=== PATIENT | female | born 1935 | race Caucasian/White ===

== ENCOUNTER 2020-06-01 10:55 | Outpatient (REF) | payer MEDICARE, OTHER, SELFPAY ==
--- NOTE | 2020-06-01 11:04 | XR_ITS ---
EXAMINATION: XR SHOULDER, RIGHT CLINICAL INFORMATION: Shoulder pain. COMPARISON: None. TECHNIQUE: 3 views of the right shoulder. FINDINGS: Ylhcyobt-ef-dyhjdd glenohumeral joint arthritis with large inferomedial humeral head osteophyte, joint space narrowing, prominent glenoid cyst. Fjmm-db-fxaydipu AC joint arthritis. No fracture or dislocation. No abnormal soft tissue calcification. XR/XR shoulder RT min 2V IMPRESSION: Pypdokzq-vm-jxkmdr glenohumeral joint arthritis. Ifsh-hd-mluryret AC joint arthritis.
== END 2020-06-01 10:56 | disposition home or self-care (01) ==
LOC: HO.HMGCX 10:55
PROVIDERS: PCP Internal Medicine; Visit Provider Internal Medicine
DX: M79.603 Pain in arm, unspecified (principal)
CPT/HCPCS: 73030

== ENCOUNTER 2021-10-01 07:04 | Outpatient (REF) | payer MEDICARE, OTHER, SELFPAY ==
[2021-10-01 11:22] LABS: Hematocrit 37.3 % (37.0-47.0); Hemoglobin 12.3 g/dl (12.0-16.0); Mean Platelet Volume 10.7 fL (9.4-12.3); Platelet Count 179 X10*3/uL (160-400); Red Blood Count 3.97 X10*6/uL (4.20-5.50); Red Cell Distribution Width 12.9 % (11.0-16.0); White Blood Count 5.8 X10*3/uL (4.8-10.8)
[2021-10-01 11:45] LABS: Alanine Aminotransferase 12 U/L (0-31); Albumin Level 4.1 g/dL (3.5-5.0); Alkaline Phosphatase 95 U/L (39-117); Anion Gap 12 (12-20); Aspartate Amino Transferase 21 U/L (5-31); Bilirubin Total 1.4 mg/dL (0.0-1.0); Blood Urea Nitrogen 22 mg/dL (9-16); Calcium 9.4 mg/dL (8.4-10.2); Carbon Dioxide 29 mmol/L (22-29); Chloride 104 mmol/L (96-108); Cholesterol 167 mg/dL; Estimated Glomerular Filt Rate 59; Glucose Fasting 96 mg/dL (60-99); HDL Cholesterol 47 mg/dL; LDL Cholesterol Calculated 99 mg/dl; Potassium 4.1 mmol/L (3.3-5.1); Sodium 141 mmol/L (135-145); Total Protein 7.1 g/dL (6.5-8.0); Triglycerides 108 mg/dL
[2021-10-01 11:50] LABS: TSH reflex Free T4 2.55 uIU/mL (0.32-4.0)
== END 2021-10-01 07:05 | disposition home or self-care (01) ==
LOC: HO.HMGCLDS 07:04
PROVIDERS: Visit Provider Internal Medicine
DX: E78.5 Hyperlipidemia, unspecified (principal); I10 Essential (primary) hypertension
CPT/HCPCS: 36415; 80053; 80061; 84443; 85027

== ENCOUNTER 2022-03-30 10:50 | Outpatient (REF) | payer MEDICARE, OTHER, SELFPAY ==
[2022-03-30 14:15] LABS: MANUAL DIFF FLAG NO
[2022-03-30 14:18] LABS: Basophils Percent Auto 0.4 % (0-2); Eosinophils Absolute Auto 0.1 X10*3/uL (0.0-0.4); Eosinophils Percent Auto 2.7 % (0-4); Hematocrit 34.5 % (37.0-47.0); Hemoglobin 11.7 g/dl (12.0-16.0); Imm Gran Abs Auto 0.01 X10*3/uL (0.00-0.03); Imm Gran Pct Auto 0.2 % (0.0-0.4); Lymphocytes Absolute Auto 1.2 X10*3/uL (1.2-4.9); Lymphocytes Percent Auto 25.8 % (20-40); Mean Corpuscular HGB Conc 33.9 g/dl (31.0-35.0); Mean Corpuscular Hemoglobin 31.4 pg (27.0-33.0); Mean Corpuscular Volume 92.5 fL (80.0-98.0); Mean Platelet Volume 10.7 fL (9.4-12.3); Monocytes Absolute Auto 0.5 X10*3/uL (0.1-1.2); Neutrophils Absolute Auto 2.7 x10*3/uL (2.0-8.3); Neutrophils Percent Auto 58.9 % (45-73); Platelet Count 174 X10*3/uL (160-400); Red Blood Count 3.73 X10*6/uL (4.20-5.50); Red Cell Distribution Width 13.2 % (11.0-16.0); White Blood Count 4.5 X10*3/uL (4.8-10.8)
[2022-03-30 14:48] LABS: Alanine Aminotransferase 13 U/L (0-31); Albumin Level 4.2 g/dL (3.5-5.0); Alkaline Phosphatase 95 U/L (39-117); Anion Gap 15 (12-20); Aspartate Amino Transferase 23 U/L (5-31); Blood Urea Nitrogen 18 mg/dL (9-16); Calcium 9.3 mg/dL (8.4-10.2); Carbon Dioxide 28 mmol/L (22-29); Chloride 104 mmol/L (96-108); Estimated Glomerular Filt Rate 55; Glucose Random 88 mg/dL (60-115); Iron 102 mcg/dL (30-160); Percent Iron Saturation 35 % (15-50); Potassium 3.9 mmol/L (3.3-5.1); Sodium 143 mmol/L (135-145); Total Iron Binding Capacity 292 mcg/dL (228-428); Unsaturated Iron Binding 190 ug/dL
[2022-03-30 15:11] LABS: TSH reflex Free T4 1.21 uIU/mL (0.32-4.0)
== END 2022-03-30 10:51 | disposition home or self-care (01) ==
LOC: HO.HMGCLDS 10:50
PROVIDERS: PCP Internal Medicine; Visit Provider Internal Medicine
DX: I10 Essential (primary) hypertension (principal); R53.83 Other fatigue; E55.9 Vitamin D deficiency, unspecified
CPT/HCPCS: 36415; 80053; 82306; 83540; 84443; 85025

== ENCOUNTER 2023-01-06 10:14 | Outpatient (AMB) | payer MEDICARE, OTHER, SELFPAY ==
[2023-01-06 10:43] VITALS: BP 142/66; PULSE 83; O2SAT 98; BMI 25.1
--- NOTE | 2023-01-06 10:43 | A.OFFPC_ITS ---
Vital Signs 01/06/23 10:43 Height 5 ft 1 in Weight 133 lb BMI 25.1 BP 142/66 H Blood Pressure Location Lt brachial Position Sitting Pulse 83 Pulse Source Pulse Oximeter Pulse Oximetry (%) 98 Oxygen Delivery Method Room Air Intake Visit Reasons: fatigue/not feeling well Intake Note: Pt is here today for a follow up visit. Pt states that she has some concerns she would like to dicuss today. Allergies omeprazole [Prilosec] Allergy (Unknown, Verified 01/06/23 10:46) hives Medication List - Last Reconciled 01/06/23 by Cady Orr MD aspirin (Adult Aspirin Regimen) 81 mg PO DAILY escitalopram oxalate 10 mg PO DAILY flu vac 2020 [id number](PF) 60 mcg (15 mcg x 4)/0.5 mL 0.5 mL IM DIRECTED lisinopril 5 mg PO DAILY multivitamin 1 tab PO DAILY pantoprazole 40 mg PO DAILY simvastatin 40 mg PO BEDTIME Tobacco use date assessed: 01/06/23 Fall risk assessment: No Falls in past year Last assessed Fall Risk: 01/06/23 Dental Screening Dental Screen Date: 01/06/23 Did you have a dental visit in the last 12 months?: Yes Did you have a dental problem in the last 6 months where you did not have access to dental care?: No Was dental information given to patient?: Patient has dentist HPI fatigue/not feeling well HPI Details Pt presents for HTN and hyperlipid, stable on meds. Pt c/o feeling more anxious recently. She has been less socially involved since [facility]. Patient lives with her son but he is very busy working. Patient denies insomnia or depression [facility] Medical History Anxiety disorder Arm pain Dyslipidemia Essential hypertension GERD (gastroesophageal reflux disease) Hx of fall Shoulder pain, right Surgical History No pertinent past surgical history Family History (Updated 01/06/23 @ 10:50 by AMIRA Burk) Father Pancreatic cancer Mother Hypertension Social History Housing: House Alcohol intake: current Alcohol intake frequency: a few times a month Patient Tobacco Use Status: Never used Tobacco e-Cigarette/Vaping Use: Never Used Current occupational status: retired Cognitive needs: No Hearing needs: Yes Vision needs: Yes Questionnaire Thrive Questionnaire Date Thrive assessed: 09/28/21 AUDIT C Alcohol Use Questionnaire (AUDIT-C) 1. How often do you have a drink containing alcohol?: Never 3. How often do you have six or more drinks on one occasion?: Never Total Score: 0 JULI-7 AMB Questionnaire JULI-7 Date JULI - 7 assessed: 09/28/21 Source: Developed by Drs. Howard Barnard, Grace Becker, Jimmie Schuster and colleagues, with an educational enoc from [employer] Review of Systems Const All systems reviewed & are unremarkable except as noted in HPI and below Reports no additional complaints Eyes Reports no additional complaints ENT Reports no additional complaints Card Reports no additional complaints Resp Reports no additional complaints GI Reports no additional complaints Physical exam (Primary Care) Vital Signs: Last Vital Signs Pulse 83 01/06/23 10:43 BP 142/66 H 01/06/23 10:43 Pulse Ox 98 01/06/23 10:43 Oxygen Delivery Method Room Air 01/06/23 10:43 BMI result Body Mass Index 25.1 Tobacco/Smoking Status: Tobacco use Status Tobacco use date assessed 01/06/23 01/06/23 10:50 Patient Tobacco Use Status Never used Tobacco 01/06/23 10:50 e-Cigarette/Vaping Use Never Used 01/06/23 10:50 Thrive Assessment: Date of Thrive Assessment Date Thrive assessed 09/28/21 01/06/23 10:50 Const General: no acute distress HENMT Face and sinus: Yes normal facial exam Neck Neck: Yes supple Resp Effort & Inspection: normal respiratory effort Auscultation: clear to auscultation bilaterally Cardio Rhythm: regular rhythm Heart sounds: S1 normal heart sound present, S2 normal heart sound present and Murmur heart sound present systolic III/ GI Palpation (GI): Soft to palpation Percussion: Yes normal to percussion Auscultation: normal bowel sounds Assessment and Plan Assessment & Plan (1) HTN (hypertension): Code(s): I10 - Essential (primary) hypertension Plan: Continue lisinopril (2) Vitamin D deficiency: Code(s): E55.9 - Vitamin D deficiency, unspecified Plan: Continue vitamin-D supplement and check the level (3) Anemia: Code(s): D64.9 - Anemia, unspecified Plan: Repeat CBC check iron and B12 level (4) Heart murmur: Code(s): R01.1 - Cardiac murmur, unspecified Plan: Obtain echocardiogram (5) Anxiety disorder: Code(s): F41.9 - Anxiety disorder, unspecified Plan: Restart escitalopram and follow-up in 4 months (6) Dyslipidemia: Code(s): E78.5 - Hyperlipidemia, unspecified Plan: Continue statin Orders: Orders Comprehensive Met. Panel Today D64.9 - Anemia, unspecified, E55.9 - Vitamin D deficiency, unspecified, I10 - Essential (primary) hypertension, R01.1 - Cardiac murmur, unspecified TSH reflex Free T4 Today D64.9 - Anemia, unspecified, E55.9 - Vitamin D deficiency, unspecified, I10 - Essential (primary) hypertension, R01.1 - Cardiac murmur, unspecified Complete Blood Count Auto Diff Today D64.9 - Anemia, unspecified, E55.9 - Vitamin D deficiency, unspecified, I10 - Essential (primary) hypertension, R01.1 - Cardiac murmur, unspecified CA echo transthoracic complete Today I10 - Essential (primary) hypertension, R01.1 - Cardiac murmur, unspecified Vitamin B12 and Folate Today D64.9 - Anemia, unspecified, I10 - Essential (primary) hypertension IRON PROFILE Today D64.9 - Anemia, unspecified, I10 - Essential (primary) hypertension Medications: Refilled escitalopram oxalate 10 mg PO DAILY 90 tabs 3RF Coding Level of Care Code Est Pt Level 4 (67336) Diagnoses HTN (hypertension) I10 Vitamin D deficiency E55.9 Anemia D64.9 Heart murmur R01.1 Anxiety disorder F41.9 Dyslipidemia E78.5
== END 2023-01-06 11:34 | disposition home or self-care (01) ==
PROVIDERS: PCP Internal Medicine; Visit Provider Internal Medicine
DX: I10 Essential (primary) hypertension (principal); E55.9 Vitamin D deficiency, unspecified; F41.9 Anxiety disorder, unspecified; D64.9 Anemia, unspecified; R01.1 Cardiac murmur, unspecified; E78.5 Hyperlipidemia, unspecified
CPT/HCPCS: 99214

== ENCOUNTER 2023-01-06 11:24 | Outpatient (REF) | payer MEDICARE, OTHER, SELFPAY ==
[2023-01-06 14:22] LABS: MANUAL DIFF FLAG NO
[2023-01-06 14:45] LABS: Basophils Percent Auto 0.4 % (0-2); Eosinophils Absolute Auto 0.2 X10*3/uL (0.0-0.4); Eosinophils Percent Auto 2.9 % (0-4); Hematocrit 35.3 % (37.0-47.0); Hemoglobin 11.7 g/dl (12.0-16.0); Imm Gran Abs Auto 0.01 X10*3/uL (0.00-0.03); Imm Gran Pct Auto 0.2 % (0.0-0.4); Lymphocytes Absolute Auto 1.1 X10*3/uL (1.2-4.9); Lymphocytes Percent Auto 20.3 % (20-40); Mean Corpuscular HGB Conc 33.1 g/dl (31.0-35.0); Mean Corpuscular Hemoglobin 31.5 pg (27.0-33.0); Mean Corpuscular Volume 94.9 fL (80.0-98.0); Mean Platelet Volume 10.9 fL (9.4-12.3); Monocytes Absolute Auto 0.5 X10*3/uL (0.1-1.2); Monocytes Percent Auto 9.4 % (2-11); Neutrophils Absolute Auto 3.5 x10*3/uL (2.0-8.3); Neutrophils Percent Auto 66.8 % (45-73); Platelet Count 172 X10*3/uL (160-400); Red Blood Count 3.72 X10*6/uL (4.20-5.50); White Blood Count 5.2 X10*3/uL (4.8-10.8)
[2023-01-06 15:30] LABS: Alanine Aminotransferase 11 U/L (0-31); Albumin Level 4.1 g/dL (3.5-5.0); Alkaline Phosphatase 83 U/L (39-117); Anion Gap 10 (12-20); Aspartate Amino Transferase 20 U/L (5-31); Blood Urea Nitrogen 16 mg/dL (9-16); Calcium 9.6 mg/dL (8.4-10.2); Carbon Dioxide 30 mmol/L (22-29); Chloride 106 mmol/L (96-108); Estimated Glomerular Filt Rate 50; Glucose Random 100 mg/dL (60-115); Iron 92 mcg/dL (30-160); Percent Iron Saturation 36 % (15-50); Potassium 4.1 mmol/L (3.3-5.1); Sodium 142 mmol/L (135-145); Total Iron Binding Capacity 256 mcg/dL (228-428); Total Protein 7.1 g/dL (6.5-8.0); Unsaturated Iron Binding 164 ug/dL
[2023-01-06 15:49] LABS: Folate 15.8 ng/mL (> or = 4.0); Vitamin B12 419 pg/mL (200-900)
[2023-01-06 15:57] LABS: TSH reflex Free T4 1.87 uIU/mL (0.32-4.0)
== END 2023-01-06 11:25 | disposition home or self-care (01) ==
LOC: HO.HMGCLDS 11:24
PROVIDERS: PCP Internal Medicine; Visit Provider Internal Medicine
DX: R01.1 Cardiac murmur, unspecified (principal); I10 Essential (primary) hypertension; D64.9 Anemia, unspecified; E55.9 Vitamin D deficiency, unspecified
CPT/HCPCS: 36415; 80053; 82607; 82746; 83540; 84443; 85025

== ENCOUNTER → 2023-02-13 09:42 | Outpatient (REF) | payer MEDICARE, OTHER, SELFPAY ==
--- NOTE | 2023-02-13 09:45 | CA_ITS ---
Transthoracic Echocardiogram Patient (Last, First, Middle): Crystal Hampton, Gender: Female Date of : 1935 Age: 87 Procedure Date: 02/13/2023 Procedure Type: Transthoracic Echocardiogram Location: OP Height: 154.94 cm Weight: 60.78 kg BSA: 1.59 m2 Heart Rate: bpm BP: 120 / 75 mmHg Fountain Operator: Referring MD: Cady Orr MD Symptoms: I10 - Essential (primary) hypertension Study Quality: Fair ECG Rhythm: Sinus Conclusions: - The left ventricular systolic function is normal. The calculated ejection fraction is 62% by biplane method. - No obvious valvular pathology seen on this study. Findings Left Ventricle Normal left ventricular cavity size. The left ventricular systolic function is normal. The calculated ejection fraction is 62% by biplane method. There is no evidence of regional wall motion abnormalities. Evidence suggests grade I (mild) diastolic dysfunction. Moderate focal hypertrophy of the basal septum. Right Ventricle Normal right ventricular cavity size and systolic function. Atria Both atria are normal in size. Aortic Valve There is a normal trileaflet aortic valve. There is mild calcification of the aortic valve. There is no aortic valve stenosis. There is no aortic valve regurgitation. Mitral Valve The mitral valve appears normal. There is trace mitral valve regurgitation. There is no mitral valve stenosis. Pulmonic Valve The pulmonic valve is likely normal. Tricuspid Valve Normal tricuspid valve structure. There is trace tricuspid valve regurgitation. There is no evidence of pulmonary hypertension. Great Vessels The asc aorta is normal in size. Venous The inferior vena cava is normal in size and collapses greater than 50% with inspiration. Pericardium/Pleural There is no evidence of pericardial effusion. Prior Study Comparison No prior study available for comparison. Recommendations, Care & Conclusions No obvious valvular pathology seen on this study. Measurements 2D Linear Measurements IVSd: 1.05 0.6-0.9/0.6-1.0 cm LVIDd: 3.71 3.9-5.3/4.2-5.9 cm LVIDd Index: 2.33 2.4-3.2/2.2-3.1 cm/m2 LVIDs: 2.22 2.0-3.6 cm LVPWd: 1.04 0.7-1.1 cm Ao Root: 2.90 2.1-3.5 cm LA Diam: 3.00 2.7-3.8/3.0-4.0 cm LAIDs Index: 1.89 1.5-2.3 cm/m2 LV Mass: 149.81 67-162/88-224 g LV Mass Index: 94.22 43-95/49-115 g/m2 LVOT Diam: 1.90 3.0+(-)1.3 cm 2D Systolic Function EF 4C: 62.20 >55% EF 2C: 60.40 >55% EF BiP: 62.30 >55% Mitral Valve MV VTI: 0.35 MV Pk Chris: 0.98 MV Mn Chris: 0.59 MV Pk Grad: 4.00 MV Mn Grad: 2.00 MV Pk E: 0.98 MV PK A: 1.00 MV Decel Time: 213.00 E/A: 1.00 E'Lateral: 5.87 E'Medial: 5.00 E/E' Med: 19.50 E/E' Lat: 16.60 PHT: 62.00 MVA PHT: 3.55 MVA Continuity: 2.71 Decel [place]: 4.58 Aortic Valve AoV Pk Chris: 1.88 AoV Mn Chris: 1.28 AoV VTI: 0.52 AoV Pk Grad: 14.00 Aov Mn Grad: 8.00 APRIL Cont.VTI: 1.82 LVOT LVOT Pk Chris: 1.17 LVOT Mn Chris: 0.85 LVOT VTI: 0.33 LVOT Pk Grad: 5.00 LVOT Mn Grad: 3.00 LVOT Diam: 1.90 LVOT Area: 2.84 Diastolic Function MV Pk E: 0.98 MV Pk A: 1.00 E/A: 1.00 E'Medial: 5.00 E/E' Med: 19.50 E' Laterial: 5.87 E/E' Lat: 16.60 Tricuspid Valve TR Pk Chris: 2.00 TR Pk Grad: 16.00 RA Press: 3.00 RVSP: 19.00 Great Vessels Aorta Ao Root-2D: 2.90 2.0-3.7 cm Ao Asc: 3.10 2.1-3.4 cm Pulmonary Valve PV Pk Chris: 1.17 Peak PV Grad: 5.00 Updated in Other Vendor System with Status of Final Raymond Mills MD electronically signed on 02/13/2023 12:20:06 PM with status of Final
== END ==
LOC: HO.CARD 09:42
PROVIDERS: PCP Internal Medicine; Visit Provider Internal Medicine
DX: R01.1 Cardiac murmur, unspecified (principal); I10 Essential (primary) hypertension
CPT/HCPCS: 93306

== ENCOUNTER → 2023-02-13 09:45 | Outpatient (BNV) | payer MEDICARE, OTHER, SELFPAY | PROVIDERS: PCP Internal Medicine; Visit Provider Internal Medicine | DX: I35.8 Other nonrheumatic aortic valve disorders (principal); I51.9 Heart disease, unspecified | CPT/HCPCS: 93306 ==

== ENCOUNTER 2023-03-10 09:15 | Outpatient (AMB) | payer MEDICARE, OTHER, SELFPAY ==
--- NOTE | 2023-03-10 09:26 | MHC.OFFWIV ---
Intake Vital Signs 03/10/23 09:29 Height 5 ft 1 in Weight 133 lb 5 oz BMI 25.2 BP 130/70 Blood Pressure Location Lt brachial Position Sitting Pulse 80 Pulse Source Pulse Oximeter Pulse Oximetry (%) 98 Oxygen Delivery Method Room Air Intake Visit Reasons: EP Fell/Bruise AB /groin hurts Intake Note: Patient here because she fell last monday she fell on her right side of hip and has bruising on hip and groin pain. Patient Tobacco Use Status: Never used Tobacco Allergies omeprazole [Prilosec] Allergy (Unknown, Verified 03/10/23 09:30) hives Do you need a note to return to daycare/school/sports/work: No HPI HPI Comments History of Present Illness Details This is a 87-year-old female who presents to the office today for sick visit. Patient complaining of right hip pain x1 week status post mechanical fall. Patient states she was visiting a friend when her friend tripped and she attempted to catch her friend causing her to fall on her right hip. She states the right hip pain is worse and worse when getting bed in morning she able to ambulate and bear weight on the right lower extremity though she does some pain. She states the hip pain is radiating into her right groin. She denies any numbness/weakness/ paresthesias of her extremities. Patient states the fall was truly mechanical in nature. She denies any lightheadedness or dizziness or chest pain or shortness of breath prior to the fall. She denies any head trauma or loss of consciousness. [facility] Medical History Anxiety disorder Arm pain Dyslipidemia Essential hypertension GERD (gastroesophageal reflux disease) Hx of fall Shoulder pain, right Surgical History No pertinent past surgical history Family History (Updated 01/06/23 @ 10:50 by AMIRA Burk) Father Pancreatic cancer Mother Hypertension Social History Housing: House Alcohol intake: current Alcohol intake frequency: a few times a month Patient Tobacco Use Status: Never used Tobacco e-Cigarette/Vaping Use: Never Used Current occupational status: retired Cognitive needs: No Hearing needs: Yes Vision needs: Yes Review of Systems Const All systems reviewed & are unremarkable except as noted in HPI and below Reports no additional complaints Eyes Reports no additional complaints ENT Reports no additional complaints Card Reports no additional complaints Resp Reports no additional complaints GI Reports no additional complaints Reports no additional complaints Musc Reports no additional complaints Skin/Breast Reports system reviewed and no additional complaints, except as documented Neuro Reports no additional complaints Psych Reports no additional complaints Endo Reports no additional complaints Chiki/Lymph Reports no additional complaints Aller/Immun Reports no additional complaints Physical Exam Vital Signs: Last Vital Signs Pulse 80 03/10/23 09:29 BP 130/70 03/10/23 09:29 Pulse Ox 98 03/10/23 09:29 Oxygen Delivery Method Room Air 03/10/23 09:29 BMI result Body Mass Index 25.2 Const Other: Vital signs reviewed. Constitutional: Non-toxic appearing. No acute distress. Well-developed and well-nourished. HEENT: Normocephalic and atraumatic. PERRL/EOMI. Skin: Warm and dry. No rashes or lesions noted. Neck: Full and painless range of motion. No cervical lymphadenopathy. Cardio: Regular rate. No lower extremity edema. No JVD. Pulmonary: No respiratory distress. No accessory muscle usage. Gastrointestinal: Soft, nontender, and nondistended in all 4 quadrants. Normoactive bowel sounds in all 4 quadrants. Genitourinary: No CVA tenderness. Musculoskeletal: Tenderness to palpation of lateral right hip. Ecchymosis of the lateral right hip. Right lower extremity is not shortened or externally rotated. Neuro: Alert and oriented x4. Cranial nerves 2-12 grossly intact. No focal deficits appreciated. Psych: Normal mood and affect. Assessment & Plan Assessment & Plan (1) Right hip pain: Code(s): M25.551 - Pain in right hip Plan This is an 87-year-old female who presented to the office complaining of right hip pain x1 week status post a mechanical fall. On physical examination there is tenderness to palpation of the lateral right hip as well as ecchymosis of the lateral right hip. She is distally neurovascularly intact. Differential diagnoses include hip fracture versus contusion versus sprain/ strain. Check x-ray of the right hip. Recommend rest/activity modification, ice to the area, and elevation of the extremity. Continue with acetaminophen/ibuprofen for pain management as long as patient has no medical contraindications. Patient will be called with the results of the x-ray. patient was advised to follow-up here or proceed directly to the emergency room if she were to develop persistent/worsening symptoms. Patient verbalized understanding and is agreeable with the plan. Orders: Orders XR hip RT w PEL1V Today M25.551 - Pain in right hip Coding Level of Care Code Est Pt Level 3 (37572) Diagnoses Right hip pain M25.551
[2023-03-10 09:29] VITALS: BP 130/70; PULSE 80; O2SAT 98; BMI 25.2
== END 2023-03-10 10:14 | disposition home or self-care (01) ==
PROVIDERS: PCP Internal Medicine; Visit Provider Physician Assistant Medical
DX: M25.551 Pain in right hip (principal)
CPT/HCPCS: 99213

== ENCOUNTER 2023-03-10 09:53 | Outpatient (REF) | payer MEDICARE, OTHER, SELFPAY ==
--- NOTE | ~2023-03-10 | XR_ITS ---
EXAMINATION: XR HIP, RIGHT CLINICAL INFORMATION: Pain in right hip COMPARISON: None available. TECHNIQUE: Single view the pelvis 2 views of the right hip FINDINGS: No acute visible fracture or dislocation. 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 Degenerative arthropathy of the lower lumbar/lumbosacral spine and pubic symphysis. Joint spaces and alignment are otherwise maintained. Bowel gas is unremarkable. XR/XR hip RT w PEL1V IMPRESSION: 1. No acute visible fracture or dislocation. 2. 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
== END 2023-03-10 09:54 | disposition home or self-care (01) ==
LOC: HO.HMGCX 09:53
PROVIDERS: PCP Internal Medicine; Visit Provider Physician Assistant Medical
DX: M25.551 Pain in right hip (principal)
CPT/HCPCS: 73502

== ENCOUNTER 2023-05-19 13:25 | Outpatient (AMB) | payer MEDICARE, OTHER, SELFPAY ==
--- NOTE | 2023-05-19 13:31 | MHC.PC.OV ---
Vital Signs 05/19/23 13:32 Height 5 ft 1 in Weight 128 lb BMI 24.2 BP 128/76 Blood Pressure Location Lt brachial Position Sitting Pulse 99 Pulse Source Pulse Oximeter Pulse Oximetry (%) 99 Oxygen Delivery Method Room Air Intake Visit Reasons: 4m follow up Intake Note: Pt is here today for 4 months follow up visit.Pt states that she fell a month ago on her R side and h=came to the office to have xrays done on her hip and was told that everything was fine. Allergies omeprazole [Prilosec] Allergy (Unknown, Verified 05/19/23 13:34) hives Medication List - Last Reconciled 05/19/23 by Cady Orr MD aspirin (Adult Aspirin Regimen) 81 mg PO DAILY escitalopram oxalate 10 mg PO DAILY flu vac 2020 [id number](PF) 60 mcg (15 mcg x 4)/0.5 mL 0.5 mL IM DIRECTED lisinopril 5 mg PO DAILY multivitamin 1 tab PO DAILY pantoprazole 40 mg PO DAILY simvastatin 40 mg PO BEDTIME Tobacco use date assessed: 05/19/23 Fall risk assessment: 1 Fall in past year Last assessed Fall Risk: 05/19/23 Dental Screening Dental Screen Date: 05/19/23 Did you have a dental visit in the last 12 months?: Yes Did you have a dental problem in the last 6 months where you did not have access to dental care?: No Was dental information given to patient?: Patient has dentist HPI 4m follow up HPI Details Pt presents for HTN, hyperlipid, GERD, stable on meds. PFSH Medical History Anxiety disorder GERD (gastroesophageal reflux disease) Dyslipidemia Essential hypertension Arm pain Shoulder pain, right Hx of fall Surgical History No pertinent past surgical history Family History Father Pancreatic cancer Mother Hypertension Social History (Updated 05/19/23 @ 14:13 by Cady Orr MD) Household Members Other:: lives with son, Housing: House Alcohol intake: current Alcohol intake frequency: a few times a month Patient Tobacco Use Status: Never used Tobacco e-Cigarette/Vaping Use: Never Used Current occupational status: retired Cognitive needs: No Hearing needs: Yes Vision needs: Yes Questionnaire PHQ-9 Over the last 2 weeks, how often have you been bothered by any of the following problems? 1. Little interest or pleasure in doing things: not at all 2. Feeling down, depressed, or hopeless: not at all 3. Trouble falling or staying asleep, or sleeping too much: not at all 4. Feeling tired or having little energy: not at all 5. Poor appetite or overeating: not at all 6. Feeling bad about yourself - or that you are a failure or have let yourself or your family down: not at all 7. Trouble concentrating on things, such as reading the newspaper or watching television: not at all 8. Moving or speaking so slowly that other people could have noticed. Or the opposite - being so fidgety or restless that you have been moving around a lot more than usual: not at all 9. Thoughts that you would be better off or of hurting yourself in some way: not at all Total score: 0 Depression Screening Interpretation: Negative Depression Screening Done: Yes 78757 - PHQ-9 Billing: Yes Source: Developed by Drs. Howard Barnard, Grace Becker, Jimmie Schuster and colleagues, with an educational enoc from [employer]. Thrive Questionnaire Date Thrive assessed: 05/19/23 I am a: Patient What is your living situation today?: I have a steady place to live Within the past 12 months, did the food you bought not last and you didn't have the money to get more?: Never true Within the past 12 months, did you worry whether your food would run out before you got money to buy more?: Never true Do you have trouble paying for medicines?: No Do you have trouble getting transportation to medical appointments?: No Do you have trouble paying your heating and electricity bill?: No Do you have trouble taking care of your child, family member or friend?: No Do you have trouble with day-to-day activities such as bathing, preparing meals, shopping, managing finances, etc.?: No Are you currently unemployed and looking for a job?: No Are you interested in more education?: No Please select the resources that you would like help with: None Currently or been in a relationship where the following occur: no concerns reported JULI-7 AMB Questionnaire JULI-7 Date JULI - 7 assessed: 05/19/23 Feeling nervous, anxious, or on edge: 0 = Not at all Not being able to stop or control worryin = Not at all Worrying too much about different things: 0 = Not at all Trouble relaxin = Not at all Being so restless that it is hard to sit still: 0 = Not at all Becoming easily annoyed or irritable: 0 = Not at all Feeling afraid as if something awful might happen: 0 = Not at all Total JULI-7 score (0-4 normal; 5-9 mild; 10-14 moderate; 15-21 severe): 0 Source: Developed by Drs. Howard Barnard, Grace Becker, Jimmie Schuster and colleagues, with an educational enoc from [employer]. Review of Systems Const All systems reviewed & are unremarkable except as noted in HPI and below Reports no additional complaints Eyes Reports no additional complaints ENT Reports no additional complaints Card Reports no additional complaints GI Reports no additional complaints Reports no additional complaints Physical exam (Primary Care) Vital Signs: Last Vital Signs Pulse 99 05/19/23 13:32 BP 128/76 05/19/23 13:32 Pulse Ox 99 05/19/23 13:32 Oxygen Delivery Method Room Air 05/19/23 13:32 BMI result Body Mass Index 24.2 Tobacco/Smoking Status: Tobacco use Status Tobacco use date assessed 05/19/23 05/19/23 13:38 Patient Tobacco Use Status Never used Tobacco 05/19/23 14:13 e-Cigarette/Vaping Use Never Used 05/19/23 14:13 PHQ-9: PHQ-9 Score PHQ-9: Total score 0 05/19/23 14:14 Depression Screening Interpretation: Negative Thrive Assessment: Date of Thrive Assessment Date Thrive assessed 05/19/23 05/19/23 13:38 Currently or been in a relationship where the following occur: no concerns reported Const General: no acute distress HENMT Head: Yes normal to inspection Ears: hearing grossly normal bilaterally General nose exam: Normal external nose present Throat: Yes posterior oropharynx normal Eyes General: appearance normal, both eyes and all related structures Neck Neck: Yes no lymphadenopathy and Yes supple Resp Effort & Inspection: normal respiratory effort Auscultation: clear to auscultation bilaterally Cardio Rhythm: regular rhythm Heart sounds: S1 normal heart sound present and S2 normal heart sound present GI Inspection: Yes normal to inspection Palpation (GI): Soft to palpation Percussion: Yes normal to percussion Auscultation: normal bowel sounds Assessment and Plan Assessment & Plan (1) Anemia: Code(s): D64.9 - Anemia, unspecified Plan: Check CBC iron count and B12 level (2) HTN (hypertension): Code(s): I10 - Essential (primary) hypertension Plan: Continue lisinopril (3) Dyslipidemia: Code(s): E78.5 - Hyperlipidemia, unspecified Plan: Continue statin (4) Fatigue: Code(s): R53.83 - Other fatigue (5) Anxiety disorder: Code(s): F41.9 - Anxiety disorder, unspecified Plan: Continue Lexapro follow-up in 6 months Orders: Orders Comprehensive Met. Panel Today D64.9 - Anemia, unspecified, E78.5 - Hyperlipidemia, unspecified, I10 - Essential (primary) hypertension, R53.83 - Other fatigue TSH reflex Free T4 Today D64.9 - Anemia, unspecified, E78.5 - Hyperlipidemia, unspecified, I10 - Essential (primary) hypertension, R53.83 - Other fatigue Vitamin B12 and Folate Today D64.9 - Anemia, unspecified, E78.5 - Hyperlipidemia, unspecified, I10 - Essential (primary) hypertension, R53.83 - Other fatigue IRON PROFILE Today D64.9 - Anemia, unspecified, E78.5 - Hyperlipidemia, unspecified, I10 - Essential (primary) hypertension, R53.83 - Other fatigue Complete Blood Count Auto Diff Today D64.9 - Anemia, unspecified, E78.5 - Hyperlipidemia, unspecified, I10 - Essential (primary) hypertension, R53.83 - Other fatigue Coding Level of Care Code Est Pt Level 4 (40496) Diagnoses Anemia D64.9 HTN (hypertension) I10 Dyslipidemia E78.5 Fatigue R53.83 Anxiety disorder F41.9
[2023-05-19 13:32] VITALS: BP 128/76; PULSE 99; O2SAT 99; BMI 24.2
== END 2023-05-19 14:42 | disposition home or self-care (01) ==
LOC: HO.HMGC 13:25
PROVIDERS: PCP Internal Medicine; Visit Provider Internal Medicine
DX: D64.9 Anemia, unspecified (principal); I10 Essential (primary) hypertension; E78.5 Hyperlipidemia, unspecified; R53.83 Other fatigue; F41.9 Anxiety disorder, unspecified
CPT/HCPCS: 99214

== ENCOUNTER 2023-05-19 14:22 | Outpatient (REF) | payer MEDICARE, OTHER, SELFPAY ==
[2023-05-19 16:06] LABS: MANUAL DIFF FLAG NO
[2023-05-19 16:15] LABS: Basophils Percent Auto 0.3 % (0-2); Eosinophils Absolute Auto 0.1 X10*3/uL (0.0-0.4); Eosinophils Percent Auto 1.7 % (0-4); Hematocrit 38.7 % (37.0-47.0); Hemoglobin 12.8 g/dl (12.0-16.0); Imm Gran Abs Auto 0.01 X10*3/uL (0.00-0.03); Imm Gran Pct Auto 0.1 % (0.0-0.4); Lymphocytes Absolute Auto 1.5 X10*3/uL (1.2-4.9); Lymphocytes Percent Auto 21.5 % (20-40); Mean Corpuscular HGB Conc 33.1 g/dl (31.0-35.0); Mean Corpuscular Hemoglobin 30.8 pg (27.0-33.0); Mean Corpuscular Volume 93.3 fL (80.0-98.0); Mean Platelet Volume 10.7 fL (9.4-12.3); Monocytes Absolute Auto 0.7 X10*3/uL (0.1-1.2); Monocytes Percent Auto 9.2 % (2-11); Neutrophils Absolute Auto 4.8 x10*3/uL (2.0-8.3); Neutrophils Percent Auto 67.2 % (45-73); Platelet Count 240 X10*3/uL (160-400); Red Blood Count 4.15 X10*6/uL (4.20-5.50); Red Cell Distribution Width 12.8 % (11.0-16.0); White Blood Count 7.1 X10*3/uL (4.8-10.8)
[2023-05-19 16:33] LABS: Alanine Aminotransferase 10 U/L (0-31); Albumin Level 4.3 g/dL (3.5-5.0); Alkaline Phosphatase 109 U/L (39-117); Anion Gap 13 (12-20); Aspartate Amino Transferase 21 U/L (5-31); Bilirubin Total 0.9 mg/dL (0.0-1.0); Blood Urea Nitrogen 17 mg/dL (9-16); Calcium 9.7 mg/dL (8.4-10.2); Carbon Dioxide 28 mmol/L (22-29); Chloride 104 mmol/L (96-108); Estimated Glomerular Filt Rate 51; Glucose Random 100 mg/dL (60-115); Iron 76 mcg/dL (30-160); Percent Iron Saturation 28 % (15-50); Potassium 4.6 mmol/L (3.3-5.1); Sodium 140 mmol/L (135-145); Total Iron Binding Capacity 267 mcg/dL (228-428); Total Protein 7.7 g/dL (6.5-8.0); Unsaturated Iron Binding 191 ug/dL
[2023-05-19 16:47] LABS: TSH reflex Free T4 3.15 uIU/mL (0.32-4.0)
[2023-05-19 17:02] LABS: Folate 7.6 ng/mL (> or = 4.0); Vitamin B12 424 pg/mL (200-900)
== END 2023-05-19 14:23 | disposition home or self-care (01) ==
LOC: HO.HMGCLDS 14:22
PROVIDERS: PCP Internal Medicine; Visit Provider Internal Medicine
DX: D64.9 Anemia, unspecified (principal); I10 Essential (primary) hypertension; E78.5 Hyperlipidemia, unspecified; R53.83 Other fatigue
CPT/HCPCS: 36415; 80053; 82607; 82746; 83540; 84443; 85025

== ENCOUNTER 2023-07-12 08:15 | Outpatient (AMB) | payer MEDICARE, OTHER, SELFPAY ==
[2023-07-12 08:32] VITALS: BP 120/80; PULSE 81; TEMP 36.3; O2SAT 96; BMI 23.8
--- NOTE | 2023-07-12 08:32 | AM.OFFWIN_ITS ---
Intake Vital Signs 07/12/23 08:32 Height 5 ft 1 in Weight 126 lb BMI 23.8 BP 120/80 Blood Pressure Location Lt brachial Position Sitting Pulse 81 Pulse Source Pulse Oximeter Temp 97.3 F Temp Source Temporal Artery Scan Pulse Oximetry (%) 96 Oxygen Delivery Method Room Air Intake Visit Reasons: EP lft side groin pain radiates down leg Intake Note: pt is here today for lft side groin pain radiates down leg started 3 weeks Patient Tobacco Use Status: Never used Tobacco Allergies omeprazole [Prilosec] Allergy (Unknown, Verified 07/12/23 09:02) hives Medication List - Last Reconciled 07/12/23 by Jorge Bain MD aspirin (Adult Aspirin Regimen) 81 mg PO DAILY escitalopram oxalate 10 mg PO DAILY flu vac 2020 [id number](PF) 60 mcg (15 mcg x 4)/0.5 mL 0.5 mL IM DIRECTED lisinopril 5 mg PO DAILY multivitamin 1 tab PO DAILY pantoprazole 40 mg PO DAILY simvastatin 40 mg PO BEDTIME Do you need a note to return to daycare/school/sports/work: No HPI EP lft side groin pain radiates down leg HPI Details 87-year-old female presents to the [facility] for a sick visit. She took a car ride of approximately 8 hours duration a month ago. Subsequently she has developed a pain in the left hip and groin area. Symptoms are worse on exertion or walking. She has no pain when she is lying down or sitting down. No difficulty with urination. [facility] Medical History Anxiety disorder GERD (gastroesophageal reflux disease) Dyslipidemia Essential hypertension Arm pain Shoulder pain, right Hx of fall Surgical History No pertinent past surgical history Family History Father Pancreatic cancer Mother Hypertension Social History (Updated 05/19/23 @ 14:13 by Cady Orr MD) Household Members Other:: lives with son, Housing: House Alcohol intake: current Alcohol intake frequency: a few times a month Patient Tobacco Use Status: Never used Tobacco e-Cigarette/Vaping Use: Never Used Current occupational status: retired Cognitive needs: No Hearing needs: Yes Vision needs: Yes Physical Exam Vital Signs: Last Vital Signs Temp 97.3 F 07/12/23 08:32 Pulse 81 07/12/23 08:32 BP 120/80 07/12/23 08:32 Pulse Ox 96 07/12/23 08:32 Oxygen Delivery Method Room Air 07/12/23 08:32 BMI result Body Mass Index 23.8 Extrem Other: Left leg: Full range of motion at the hip and knee. On abduction of the leg at the left hip, discomfort over the adductors Assessment & Plan Assessment & Plan (1) Deep vein thrombosis: Code(s): I82.409 - Acute embolism and thrombosis of unspecified deep veins of unspecified lower extremity Plan A stat ultrasound has been requested. Most likely symptoms could be muscular etiology. Patient was advised to proceed home after the test. Will call her with the results. If the ultrasound his negative for a clot, will treat the condition for a muscular sprain. Muscle relaxant has been ordered. Orders: Orders US venous duplex LE LT Today I82.409 - Acute embolism and thrombosis of unspecified deep veins of unspecified lower extremity Coding Level of Care Code Est Pt Level 4 (92413) Diagnoses Deep vein thrombosis I82.409
== END 2023-07-12 09:13 | disposition home or self-care (01) ==
PROVIDERS: PCP Internal Medicine; Visit Provider Internal Medicine
DX: I82.409 Acute embolism and thrombosis of unspecified deep veins of unspecified lower extremity (principal)
CPT/HCPCS: 99214

== ENCOUNTER 2023-07-12 09:06 | Outpatient (REF) | payer MEDICARE, OTHER, SELFPAY ==
--- NOTE | ~2023-07-12 | US_ITS ---
EXAMINATION: US VENOUS ULTRASOUND WITH DOPPLER LOWER EXTREMITY, LEFT CLINICAL INFORMATION: Leg pain with radiation. COMPARISON: None available. TECHNIQUE: Ultrasound of the deep veins is performed from the hip to the calf with compression sonography and color and pulse Doppler assessment. Spectral analysis with color-flow imaging is performed. FINDINGS: There is normal venous compression and respiratory variation and augmented flow. The visualized common femoral vein, superficial femoral vein, profunda femoral vein, popliteal vein, and the trifurcation region shows no evidence of deep venous thrombosis. There is no significant popliteal fossa cyst. US/US venous duplex LE LT IMPRESSION: No DVT demonstrated in the left lower extremity.
== END 2023-07-12 09:07 | disposition home or self-care (01) ==
LOC: HO.HMGCX 09:06
PROVIDERS: PCP Internal Medicine; Visit Provider Internal Medicine
DX: I82.402 Acute embolism and thrombosis of unspecified deep veins of left lower extremity (principal)
CPT/HCPCS: 93971

== ENCOUNTER 2024-01-11 07:43 | Outpatient (REF) | payer MEDICARE, OTHER, SELFPAY ==
[2024-01-11 10:56] LABS: MANUAL DIFF FLAG NO
[2024-01-11 11:14] LABS: Basophils Percent Auto 0.5 % (0-2); Eosinophils Absolute Auto 0.3 X10*3/uL (0.0-0.4); Eosinophils Percent Auto 4.6 % (0-4); Hematocrit 34.3 % (37.0-47.0); Hemoglobin 11.6 g/dl (12.0-16.0); Imm Gran Abs Auto 0.02 X10*3/uL (0.00-0.03); Imm Gran Pct Auto 0.4 % (0.0-0.4); Lymphocytes Absolute Auto 1.2 X10*3/uL (1.2-4.9); Lymphocytes Percent Auto 21.4 % (20-40); Mean Corpuscular HGB Conc 33.8 g/dl (31.0-35.0); Mean Corpuscular Hemoglobin 31.1 pg (27.0-33.0); Mean Platelet Volume 10.9 fL (9.4-12.3); Monocytes Absolute Auto 0.6 X10*3/uL (0.1-1.2); Monocytes Percent Auto 9.8 % (2-11); Neutrophils Absolute Auto 3.6 x10*3/uL (2.0-8.3); Neutrophils Percent Auto 63.3 % (45-73); Platelet Count 195 X10*3/uL (160-400); Red Blood Count 3.73 X10*6/uL (4.20-5.50); Red Cell Distribution Width 13.1 % (11.0-16.0); White Blood Count 5.6 X10*3/uL (4.8-10.8)
[2024-01-11 11:40] LABS: Alanine Aminotransferase 11 U/L (0-31); Alkaline Phosphatase 100 U/L (39-117); Anion Gap 13 (12-20); Aspartate Amino Transferase 19 U/L (5-31); Bilirubin Total 1.2 mg/dL (0.0-1.0); Blood Urea Nitrogen 15 mg/dL (9-16); Calcium 9.5 mg/dL (8.4-10.2); Carbon Dioxide 29 mmol/L (22-29); Chloride 106 mmol/L (96-108); Cholesterol 186 mg/dL (<200); Estimated Glomerular Filt Rate 54; Glucose Fasting 95 mg/dL (60-99); HDL Cholesterol 50 mg/dL (>40); Iron 84 mcg/dL (30-160); LDL Cholesterol Calculated 118 mg/dL (<100); Percent Iron Saturation 34 % (15-50); Potassium 3.9 mmol/L (3.3-5.1); Sodium 144 mmol/L (135-145); Total Iron Binding Capacity 244 mcg/dL (228-428); Total Protein 6.9 g/dL (6.5-8.0); Triglycerides 94 mg/dL (<150); Unsaturated Iron Binding 160 ug/dL
[2024-01-11 12:02] LABS: TSH reflex Free T4 2.19 uIU/mL (0.32-4.0)
[2024-01-11 12:12] LABS: Folate 6.5 ng/mL (> or = 4.0); Vitamin B12 328 pg/mL (200-900)
== END 2024-01-11 07:44 | disposition home or self-care (01) ==
LOC: HO.HMGCLDS 07:43
PROVIDERS: PCP Internal Medicine; Visit Provider Internal Medicine
DX: D64.9 Anemia, unspecified (principal); I10 Essential (primary) hypertension; E55.9 Vitamin D deficiency, unspecified; E78.5 Hyperlipidemia, unspecified
CPT/HCPCS: 36415; 80053; 80061; 82306; 82607; 82746; 83540; 84443; 85025

== ENCOUNTER 2024-01-17 13:26 | Outpatient (AMB) | payer MEDICARE, OTHER, SELFPAY ==
[2024-01-17 13:33] VITALS: BP 136/78; PULSE 77; O2SAT 100; BMI 24.4
--- NOTE | 2024-01-17 13:33 | MHC.PC.OV ---
Vital Signs 01/17/24 13:33 Height 5 ft 1 in Weight 129 lb BMI 24.4 BP 136/78 Blood Pressure Location Lt brachial Position Sitting Pulse 77 Pulse Source Pulse Oximeter Pulse Oximetry (%) 100 Oxygen Delivery Method Room Air Intake Visit Reasons: memory loss Intake Note: Pt is here today for a follow up visit. Pt's daughter states that pt is having memory problem. Allergies omeprazole [Prilosec] Allergy (Unknown, Verified 01/17/24 13:37) hives Medication List - Last Reconciled 01/17/24 by Cady Orr MD aspirin (Adult Aspirin Regimen) 81 mg PO DAILY escitalopram oxalate 10 mg PO DAILY flu vac 2019 [id number](PF) 60 mcg (15 mcg x 4)/0.5 mL 0.5 mL IM DIRECTED lisinopril 5 mg PO DAILY multivitamin 1 tab PO DAILY pantoprazole 40 mg PO DAILY simvastatin 40 mg PO BEDTIME Tobacco use date assessed: 01/17/24 Fall risk assessment: 2 + Falls in past year Last assessed Fall Risk: 01/17/24 Dental Screening Dental Screen Date: 01/17/24 Did you have a dental visit in the last 12 months?: Yes Did you have a dental problem in the last 6 months where you did not have access to dental care?: No Was dental information given to patient?: Patient has dentist HPI memory loss HPI Details Patient presents for the follow-up visit with her daughter and son who are concerned about patient having short-term memory deficits for the last year. Patient lives with son who recently retired. She reports becoming forgetful displacing objects at home but denies getting lost when walking to her friend and druze. Patient spends lot of time at home alone knitting or watching TV. She denies depression, change in appetite or sleep pattern, has not been eating well-balanced diet because does not feel like cooking . She denies headaches chest pain shortness of breath GI or complaints. Patient does not exercise regularly but denies exercise induced palpitations or chest pain. [facility] Medical History Anxiety disorder GERD (gastroesophageal reflux disease) Dyslipidemia Essential hypertension Arm pain Shoulder pain, right Hx of fall Surgical History No pertinent past surgical history Family History Father Pancreatic cancer Mother Hypertension Social History Household Members Other:: lives with son, Housing: House Alcohol intake: current Alcohol intake frequency: a few times a month Patient Tobacco Use Status: Never used Tobacco e-Cigarette/Vaping Use: Never Used service: No Current occupational status: retired Cognitive needs: No Hearing needs: Yes Vision needs: Yes Questionnaire PHQ-9 Over the last 2 weeks, how often have you been bothered by any of the following problems? 1. Little interest or pleasure in doing things: several days 2. Feeling down, depressed, or hopeless: several days 3. Trouble falling or staying asleep, or sleeping too much: not at all 4. Feeling tired or having little energy: several days 5. Poor appetite or overeating: not at all 6. Feeling bad about yourself - or that you are a failure or have let yourself or your family down: not at all 7. Trouble concentrating on things, such as reading the newspaper or watching television: not at all 8. Moving or speaking so slowly that other people could have noticed. Or the opposite - being so fidgety or restless that you have been moving around a lot more than usual: not at all 9. Thoughts that you would be better off or of hurting yourself in some way: not at all Total score: 3 Depression Screening Interpretation: Negative Depression Screening Done: Yes Source: Developed by Drs. Howard Barnard, Grace Becker, Jimmie Schuster and colleagues, with an educational enoc from [employer]. Thrive Questionnaire Date Thrive assessed: 01/17/24 I am a: Patient What is your living situation today?: I have a steady place to live Within the past 12 months, did the food you bought not last and you didn't have the money to get more?: Never true Within the past 12 months, did you worry whether your food would run out before you got money to buy more?: Never true Do you have trouble paying for medicines?: No Do you have trouble getting transportation to medical appointments?: No Do you have trouble paying your heating and electricity bill?: No Do you have trouble taking care of your child, family member or friend?: No Do you have trouble with day-to-day activities such as bathing, preparing meals, shopping, managing finances, etc.?: No Are you currently unemployed and looking for a job?: No Are you interested in more education?: No Please select the resources that you would like help with: Housing/Retirement Currently or been in a relationship where the following occur: No concerns reported THRIVE Score: 0 AUDIT C Alcohol Use Questionnaire (AUDIT-C) 1. How often do you have a drink containing alcohol?: Never 3. How often do you have six or more drinks on one occasion?: Never Total Score: 0 JULI-7 AMB Questionnaire JULI-7 Date JULI - 7 assessed: 01/17/24 Feeling nervous, anxious, or on edge: 0 = Not at all Not being able to stop or control worryin = Not at all Worrying too much about different things: 0 = Not at all Trouble relaxin = Not at all Being so restless that it is hard to sit still: 0 = Not at all Becoming easily annoyed or irritable: 0 = Not at all Feeling afraid as if something awful might happen: 0 = Not at all Total JULI-7 score (0-4 normal; 5-9 mild; 10-14 moderate; 15-21 severe): 0 Source: Developed by Drs. Howard Barnard, Grace Becker, Jimmie Schuster and colleagues, with an educational enoc from [employer]. Review of Systems Const All systems reviewed & are unremarkable except as noted in HPI and below ENT Reports no additional complaints Card Reports no additional complaints Resp Reports no additional complaints GI Reports no additional complaints Reports no additional complaints Physical exam (Primary Care) Vital Signs: Last Vital Signs Pulse 77 01/17/24 13:33 BP 136/78 01/17/24 13:33 Pulse Ox 100 01/17/24 13:33 Oxygen Delivery Method Room Air 01/17/24 13:33 BMI result Body Mass Index 24.4 Tobacco/Smoking Status: Tobacco use Status Tobacco use date assessed 01/17/24 01/17/24 13:41 Patient Tobacco Use Status Never used Tobacco 01/17/24 13:41 e-Cigarette/Vaping Use Never Used 01/17/24 13:41 PHQ-9: PHQ-9 Score PHQ-9: Total score 3 01/17/24 13:41 Depression Screening Interpretation: Negative Thrive Assessment: Date of Thrive Assessment Date Thrive assessed 01/17/24 01/17/24 13:41 Currently or been in a relationship where the following occur: No concerns reported Const General: no acute distress HENMT Mouth: Normal oral and palatal mucosa present Neck Neck: Yes supple Resp Effort & Inspection: normal respiratory effort Auscultation: clear to auscultation bilaterally Cardio Rhythm: regular rhythm Heart sounds: S1 normal heart sound present and S2 normal heart sound present GI Inspection: Yes normal to inspection Palpation (GI): Soft to palpation Percussion: Yes normal to percussion Auscultation: normal bowel sounds Neuro Cranial nerves: Yes CN's II-XII intact bilaterally Gait exam (Neuro): Normal gait present Motor exam (neuro): 5/5 motor strength present throughout Romberg Test: Negative Assessment and Plan Assessment & Plan (1) Dyslipidemia: Code(s): E78.5 - Hyperlipidemia, unspecified Plan: Patient will decrease simvastatin to 20 mg a day and check lipid profile in 2 months (2) HTN (hypertension): Code(s): I10 - Essential (primary) hypertension Plan: Continue lisinopril (3) Memory deficit: Code(s): R41.3 - Other amnesia Plan: Blood work was normal including TSH B12 and vitamin-D level. Patient was advised to increase physical and mental activity social interaction, start well-balanced diet. Follow-up in 2 months after fasting blood work Orders: Orders Lipid Panel 2 Months E78.5 - Hyperlipidemia, unspecified Medications: New simvastatin 20 mg PO BEDTIME 90 tabs 0RF Discontinued simvastatin Discontinued Reason: Doctor's Order 40 mg PO BEDTIME 90 tabs 3RF Coding Level of Care Code Est Pt Level 4 (07674) Diagnoses Dyslipidemia E78.5 HTN (hypertension) I10 Memory deficit R41.3
== END 2024-01-17 14:25 | disposition home or self-care (01) ==
PROVIDERS: PCP Internal Medicine; Visit Provider Internal Medicine
DX: E78.5 Hyperlipidemia, unspecified (principal); I10 Essential (primary) hypertension; R41.3 Other amnesia
CPT/HCPCS: 99214

== ENCOUNTER 2024-04-18 11:47 | Outpatient (AMB) | payer MEDICARE, OTHER, SELFPAY ==
[2024-04-18 11:53] VITALS: BP 124/76; PULSE 72; O2SAT 98; BMI 24.0
--- NOTE | 2024-04-18 11:53 | MHC.PC.OV ---
Vital Signs 04/18/24 11:53 Height 5 ft 1 in Weight 127 lb BMI 24.0 BP 124/76 Blood Pressure Location Rt brachial Position Sitting Pulse 72 Pulse Source Pulse Oximeter Pulse Oximetry (%) 98 Oxygen Delivery Method Room Air Intake Visit Reasons: follow up Intake Note: Pt is here today for a follow up visit.Pt states that she has been forgetful lately. Allergies omeprazole [Prilosec] Allergy (Unknown, Verified 04/18/24 11:59) hives Medication List - Last Reconciled 04/18/24 by Cady Orr MD aspirin (Adult Aspirin Regimen) 81 mg PO DAILY escitalopram oxalate 10 mg PO DAILY flu vac 2019 [id number](PF) 60 mcg (15 mcg x 4)/0.5 mL 0.5 mL IM DIRECTED lisinopril 5 mg PO DAILY multivitamin 1 tab PO DAILY pantoprazole 40 mg PO DAILY simvastatin 20 mg PO BEDTIME Tobacco use date assessed: 04/18/24 Fall risk assessment: No Falls in past year Last assessed Fall Risk: 04/18/24 Dental Screening Dental Screen Date: 01/17/24 HPI follow up HPI Details Patient presents for the follow-up on hypertension hyperlipidemia chronic GERD and anxiety stable on current medications. [facility] Medical History Anxiety disorder GERD (gastroesophageal reflux disease) Dyslipidemia Essential hypertension Arm pain Shoulder pain, right Hx of fall Surgical History No pertinent past surgical history Family History Father Pancreatic cancer Mother Hypertension Social History Household Members Other:: lives with son, Housing: House Alcohol intake: current Alcohol intake frequency: a few times a month Patient Tobacco Use Status: Never used Tobacco e-Cigarette/Vaping Use: Never Used service: No Current occupational status: retired Cognitive needs: No Hearing needs: Yes Vision needs: Yes Questionnaire Thrive Questionnaire Date Thrive assessed: 01/17/24 I am a: Patient What is your living situation today?: I have a steady place to live Within the past 12 months, did the food you bought not last and you didn't have the money to get more?: Never true Within the past 12 months, did you worry whether your food would run out before you got money to buy more?: Never true Do you have trouble paying for medicines?: No Do you have trouble getting transportation to medical appointments?: No Do you have trouble paying your heating and electricity bill?: No Do you have trouble taking care of your child, family member or friend?: No Do you have trouble with day-to-day activities such as bathing, preparing meals, shopping, managing finances, etc.?: No Are you currently unemployed and looking for a job?: No Are you interested in more education?: No Please select the resources that you would like help with: None Currently or been in a relationship where the following occur: No concerns reported THRIVE Score: 0 JULI-7 AMB Questionnaire JULI-7 Date JULI - 7 assessed: 01/17/24 Source: Developed by Drs. Howard Barnard, Grace Becker, Jimmie Schuster and colleagues, with an educational enoc from [employer]. Review of Systems Const All systems reviewed & are unremarkable except as noted in HPI and below Eyes Reports no additional complaints ENT Reports no additional complaints Card Reports no additional complaints Resp Reports no additional complaints GI Reports no additional complaints Reports no additional complaints Physical exam (Primary Care) Vital Signs: Last Vital Signs Pulse 72 04/18/24 11:53 BP 124/76 04/18/24 11:53 Pulse Ox 98 04/18/24 11:53 Oxygen Delivery Method Room Air 04/18/24 11:53 BMI result Body Mass Index 24.0 Tobacco/Smoking Status: Tobacco use Status Tobacco use date assessed 04/18/24 04/18/24 11:56 Patient Tobacco Use Status Never used Tobacco 04/18/24 11:53 e-Cigarette/Vaping Use Never Used 04/18/24 11:53 Thrive Assessment: Date of Thrive Assessment Date Thrive assessed 01/17/24 04/18/24 11:53 Currently or been in a relationship where the following occur: No concerns reported Const General: no acute distress HENMT Head: Yes normal to inspection Throat: Yes posterior oropharynx normal Resp Effort & Inspection: normal respiratory effort Auscultation: clear to auscultation bilaterally Cardio Rhythm: regular rhythm Heart sounds: S1 normal heart sound present and S2 normal heart sound present GI Inspection: Yes normal to inspection Palpation (GI): Soft to palpation Percussion: Yes normal to percussion Auscultation: normal bowel sounds Coding Level of Care Code Est Pt Level 4 (53079) Complex EM visit Add On G2211 Diagnoses HTN (hypertension) I10 Dyslipidemia E78.5 Vitamin D deficiency E55.9 Anemia D64.9 Assessment & Plan Assessment & Plan (1) HTN (hypertension): Code(s): I10 - Essential (primary) hypertension Category: Medical Plan: Continue Lisinopril (2) Dyslipidemia: Code(s): E78.5 - Hyperlipidemia, unspecified Category: Medical Plan: cont statin (3) Vitamin D deficiency: Code(s): E55.9 - Vitamin D deficiency, unspecified Category: Medical Plan: start vit D suppl (4) Anemia: Comment: nl IRON and vit B12 12/2023 Code(s): D64.9 - Anemia, unspecified Category: Medical Plan: MONITOR CBC RETURN IN 6 MONTHS Orders: Orders Comprehensive [place]. Panel Fast 6 Months E55.9 - Vitamin D deficiency, unspecified, E78.5 - Hyperlipidemia, unspecified, I10 - Essential (primary) hypertension Vitamin D 25-OH Total 6 Months E55.9 - Vitamin D deficiency, unspecified, E78.5 - Hyperlipidemia, unspecified, I10 - Essential (primary) hypertension Complete Blood Count Auto Diff 6 Months D64.9 - Anemia, unspecified Medications: New cholecalciferol (vitamin D3) 25 mcg PO DAILY 90 tabs 3RF
== END 2024-04-18 12:31 | disposition home or self-care (01) ==
LOC: HO.HMCC 11:48
PROVIDERS: PCP Internal Medicine; Visit Provider Internal Medicine
DX: I10 Essential (primary) hypertension (principal); E78.5 Hyperlipidemia, unspecified; E55.9 Vitamin D deficiency, unspecified; D64.9 Anemia, unspecified

== ENCOUNTER → 2024-04-18 11:47 | Outpatient (BNVA) | payer MEDICARE, OTHER, SELFPAY | PROVIDERS: PCP Internal Medicine; Visit Provider Internal Medicine | DX: I10 Essential (primary) hypertension (principal); E78.5 Hyperlipidemia, unspecified; E55.9 Vitamin D deficiency, unspecified; D64.9 Anemia, unspecified | CPT/HCPCS: 99212 ==

== ENCOUNTER 2024-10-21 09:19 | Outpatient (AMB) | payer MEDICARE, OTHER, SELFPAY ==
[2024-10-21 09:24] VITALS: BP 126/68; PULSE 84; RESP 18; O2SAT 99; BMI 23.6
--- NOTE | 2024-10-21 09:24 | A.OFFPC_ITS ---
Vital Signs 10/21/24 09:24 Height 5 ft 1 in Weight 125 lb BMI 23.6 BP 126/68 Blood Pressure Location Rt brachial Position Sitting Respiration 18 Pulse 84 Pulse Source Pulse Oximeter Pulse Oximetry (%) 99 Oxygen Delivery Method Room Air Intake Visit Reasons: 6 months f/up Intake Note: Pt is here today for 6 months follow up visit. Allergies omeprazole [Prilosec] Allergy (Unknown, Verified 10/21/24 09:26) hives Medication List - Last Reconciled 10/21/24 by Cady Orr MD aspirin (Adult Aspirin Regimen) 81 mg PO DAILY cholecalciferol (vitamin D3) 25 mcg PO DAILY escitalopram oxalate 10 mg PO DAILY flu vac 2020 [id number](PF) 60 mcg (15 mcg x 4)/0.5 mL 0.5 mL IM DIRECTED lisinopril 5 mg PO DAILY multivitamin 1 tab PO DAILY pantoprazole 40 mg PO DAILY simvastatin 20 mg PO BEDTIME Tobacco use date assessed: 10/21/24 Fall risk assessment: No Falls in past year Last assessed Fall Risk: 10/21/24 Dental Screening Dental Screen Date: 10/21/24 Did you have a dental visit in the last 12 months?: No Did you have a dental problem in the last 6 months where you did not have access to dental care?: No Was dental information given to patient?: Patient declined HPI 6 months f/up HPI Details Patient presents for the follow-up of hypertension hyperlipidemia chronic GERD anxiety with depression stable on current medications PFSH Medical History Anxiety disorder GERD (gastroesophageal reflux disease) Dyslipidemia Essential hypertension Arm pain Shoulder pain, right Hx of fall Surgical History No pertinent past surgical history Family History Father Pancreatic cancer Mother Hypertension Social History Household Members Other:: lives with son, Housing: House Alcohol intake: current Alcohol intake frequency: a few times a month Patient Tobacco Use Status: Never used Tobacco e-Cigarette/Vaping Use: Never Used service: No Current occupational status: retired Cognitive needs: No Hearing needs: Yes Vision needs: Yes Questionnaire PHQ-9 Over the last 2 weeks, how often have you been bothered by any of the following problems? 1. Little interest or pleasure in doing things: not at all 2. Feeling down, depressed, or hopeless: not at all 3. Trouble falling or staying asleep, or sleeping too much: not at all 4. Feeling tired or having little energy: several days 5. Poor appetite or overeating: several days 6. Feeling bad about yourself - or that you are a failure or have let yourself or your family down: not at all 7. Trouble concentrating on things, such as reading the newspaper or watching television: several days 8. Moving or speaking so slowly that other people could have noticed. Or the opposite - being so fidgety or restless that you have been moving around a lot more than usual: several days 9. Thoughts that you would be better off or of hurting yourself in some way: not at all Total score: 4 Depression Screening Interpretation: Negative Depression Screening Done: Yes 77701 - PHQ-9 Billing: Yes Source: Developed by Drs. Howard Barnard, Grace Becker, Jimmie Schuster and colleagues, with an educational enoc from [employer]. Thrive Questionnaire Date Thrive assessed: 10/21/24 I am a: Patient What is your living situation today?: I have a steady place to live Within the past 12 months, did the food you bought not last and you didn't have the money to get more?: Never true Within the past 12 months, did you worry whether your food would run out before you got money to buy more?: Never true Do you have trouble paying for medicines?: No Do you have trouble getting transportation to medical appointments?: No Do you have trouble paying your heating and electricity bill?: No Do you have trouble taking care of your child, family member or friend?: No Do you have trouble with day-to-day activities such as bathing, preparing meals, shopping, managing finances, etc.?: No Are you currently unemployed and looking for a job?: No Are you interested in more education?: No Please select the resources that you would like help with: None Currently or been in a relationship where the following occur: No concerns reported THRIVE Score: 0 AUDIT C Alcohol Use Questionnaire (AUDIT-C) 1. How often do you have a drink containing alcohol?: Never 3. How often do you have six or more drinks on one occasion?: Never Total Score: 0 JULI-7 AMB Questionnaire JULI-7 Date JULI - 7 assessed: 10/21/24 Feeling nervous, anxious, or on edge: 0 = Not at all Not being able to stop or control worryin = Not at all Worrying too much about different things: 0 = Not at all Trouble relaxin = Not at all Being so restless that it is hard to sit still: 0 = Not at all Becoming easily annoyed or irritable: 0 = Not at all Feeling afraid as if something awful might happen: 0 = Not at all Total JULI-7 score (0-4 normal; 5-9 mild; 10-14 moderate; 15-21 severe): 0 Source: Developed by Drs. Howard Barnard, Grace Becker, Jimmie Schuster and colleagues, with an educational enoc from [employer]. JULI-7 Assessment Billing JULI-7 Assessment Tool: JULI-7 Assessment 13584 Review of Systems Const All systems reviewed & are unremarkable except as noted in HPI and below Eyes Reports no additional complaints ENT Reports no additional complaints Card Reports no additional complaints Resp Reports no additional complaints GI Reports no additional complaints Reports no additional complaints Physical exam (Primary Care) Vital Signs: Last Vital Signs Pulse 84 10/21/24 09:24 Resp 18 10/21/24 09:24 BP 126/68 10/21/24 09:24 Pulse Ox 99 10/21/24 09:24 Oxygen Delivery Method Room Air 10/21/24 09:24 BMI result Body Mass Index 23.6 Tobacco/Smoking Status: Tobacco use Status Tobacco use date assessed 10/21/24 10/21/24 09:29 Patient Tobacco Use Status Never used Tobacco 10/21/24 09:29 e-Cigarette/Vaping Use Never Used 10/21/24 09:29 PHQ-9: PHQ-9 Score PHQ-9: Total score 4 10/21/24 09:59 Depression Screening Interpretation: Negative Thrive Assessment: Date of Thrive Assessment Date Thrive assessed 10/21/24 10/21/24 09:29 Currently or been in a relationship where the following occur: No concerns reported Const General: no acute distress HENMT Head: Yes normal to inspection Face and sinus: Yes normal facial exam Eyes General: appearance normal, both eyes and all related structures Neck Neck: Yes supple Resp Effort & Inspection: normal respiratory effort Auscultation: clear to auscultation bilaterally Cardio Rhythm: regular rhythm Heart sounds: S1 normal heart sound present and S2 normal heart sound present Immunizations pneumoc 20-izabel conj-dip cr(PF) 0.5 mL IM syringe Performing Provider: Cady Orr MD [place] [facility] [place] [facility] Administered by: AMIRA Burk on 10/21/24 09:58 Dose Route Admin Location Dispensed Lot Number Expiration Date [facility] Scrap Worker 0.5 mL IM Left Deltoid 0.5 mL [id number] 08/16/25 [id number] [employer] VIS Given Date VIS Provided VIS Publication Date 10/21/24 Single Vaccine 21 Eligibility Eligibility Date Funding Source Not [facility] Eligible 10/21/24 Private Coding Level of Care Code Est Pt Level 4 (73623) Diagnoses Anemia D64.9 Essential hypertension I10 Dyslipidemia E78.5 Anxiety disorder F41.9 Additional Codes JULI-7 Assessment Billing - JULI-7 Assessment Tool: JULI-7 Assessment 20899 ([id number]) PHQ-9 - 39600 - PHQ-9 Billing: Yes ([id number]) Assessment & Plan Assessment & Plan (1) Anemia: Comment: nl IRON and vit B12 12/2023 Code(s): D64.9 - Anemia, unspecified Category: Medical Plan: Monitor CBC (2) Essential hypertension: Code(s): I10 - Essential (primary) hypertension Category: Medical Plan: Continue Lisinopril (3) Dyslipidemia: Code(s): E78.5 - Hyperlipidemia, unspecified Category: Medical Plan: Continue statin (4) Anxiety disorder: Code(s): F41.9 - Anxiety disorder, unspecified Category: Medical Plan: Continue Lexapro Orders: Orders Pneumococcal 20 Immunization Today Z23 - Encounter for immunization
== END 2024-10-21 10:18 | disposition home or self-care (01) ==
LOC: HO.HMCC 09:20
PROVIDERS: PCP Internal Medicine; Visit Provider Internal Medicine
DX: D64.9 Anemia, unspecified (principal); I10 Essential (primary) hypertension; E78.5 Hyperlipidemia, unspecified; F41.9 Anxiety disorder, unspecified; Z23 Encounter for immunization

== ENCOUNTER → 2024-10-21 09:19 | Outpatient (BNVA) | payer MEDICARE, OTHER, SELFPAY | PROVIDERS: PCP Internal Medicine; Visit Provider Internal Medicine | DX: Z23 Encounter for immunization (principal); D64.9 Anemia, unspecified; E78.5 Hyperlipidemia, unspecified; I10 Essential (primary) hypertension; F41.9 Anxiety disorder, unspecified | CPT/HCPCS: 90471; 90677; 96127; 99212 ==

== ENCOUNTER → 2024-11-05 07:56 | Outpatient (RCR) | payer MEDICARE, OTHER, SELFPAY ==
--- NOTE | 2020-06-08 16:39 | MHC.PT.EP ---
[facility] [place] Office [place] Office [place] Office [address] [phone] F: [phone] F: [phone] F: [phone] F: [phone] Physical Therapy Plan of Care Date of Evaluation: 06/08/20 Date of Surgery: Diagnosis: R shoulder Pain. Assessment: Pt is an 84 y/o female referred to PT for R shoulder pain s/p fall who presents with R shoulder dysfunction resulting in decreased tolerance and ability for dressing pullovers, reaching high shelves, lifting and carrying objects of weight, and performing heavy HH chores secondary to decreased R shoulder ROM and strength, increased scapular tissue tension, scapular compensation with AROM, decreased thoracic posture and pain. Pt is deemed an appropriate candidate to receive skilled PT in order to address her physical limitations to improve her functional ability. Frequency and Duration: The patient will be seen 2 x / wk x 5 wks. Short Term Goals: In 1 week: initiate HEP with evidence of compliance. In 3 weeks: improve R shoulder AROM to > 154 degrees; initial 138 with painful end range. Fdc Goals: In 5 weeks: I with HEP. In 5 weeks: Pt will report no difficulty dressing pullovers. In 5 weeks: Pt wol be able to place object on high shelf x 5 with managed Sx. Treatment Plan: Modalities to reduce pain, spasms and effusion. Manual therapy to restore motion and function. Therapeutic exercise to improve strength and flexibility. Neuromuscular re-education for posture and balance. Therapeutic activities to return to functional activities of daily living. Electronically signed by: Quinn Mckeon PT. Please sign and return to therapist. Thank you for your referral.
--- NOTE | 2020-08-04 10:33 | MHC.PT.DC ---
[facility] [place] Office [place] Office [place] Office [address] [phone] F: [phone] F: [phone] F: [phone] F: [phone] Physical Therapy Discharge Report Diagnosis: R shoulder Pain. Date of Surgery: Date of Evaluation: 06/08/20 Date of Discharge: 08/04/20 Treatments to Date: 11 Cancellations to Date: 0 No Shows to Date: 0 Discharge Status: Achieved Goals Improved Function Independent with HEP Discharge Summary: Crystal has been an active and motivated participant in her therapy for R shoulder pain. She had met all of her therapeutic goals, is I with a home program and is in agreement with DC at this time. Electronically signed by: Quinn Mckeon PT Please sign and return to therapist. Thank you for your referral.
== END | disposition home or self-care (01) ==
LOC: HO.PTCHIC 06-08 08:41
PROVIDERS: PCP Internal Medicine; Visit Provider Internal Medicine
DX: M25.511 Pain in right shoulder (principal); M79.601 Pain in right arm; Z91.81 History of falling
CPT/HCPCS: 97110; 97150; 97161

== ENCOUNTER 2025-03-07 13:02 | Inpatient (IN) | payer MEDICARE, OTHER, SELFPAY ==
[2025-03-07] VITALS (10 sets, daily range): BP systolic 148–194; BP diastolic 56–84; PULSE 53–68; RESP 16–20; TEMP 36.4–36.5; O2SAT 96–99; BMI 24.5
--- NOTE | ~2025-03-07 | MR_ITS ---
CLINICAL HISTORY: Severe left vertebral artery stenosis Examination: MRI brain without IV contrast Comparison: CT/REG/SR - CT ANGIO HEAD NECK - 03/07/25 17:[address]/SR - CT HEAD WITHOUT IV CONTRAST - 03/07/25 15:04 EDT Findings: DWI/ADC: No restriction. T2*GRE or SWI: No susceptibility effect to suggest blood products. T2 FLAIR: Minimal periventricular/subcortical/deep white matter hyperintense foci/lesions. These lesions are nonspecific in appearance and similar findings can be seen in the setting of chronic small vessel ischemic disease, migraine headaches change, gliosis from prior infectious/inflammatory process, vasculitides or demyelination. Brain parenchyma demonstrates age-appropriate volume and normal configuration. Ventricles demonstrate a nonobstructive pattern. Basilar cisterns intact. No extra-axial space occupying lesions. No intracranial hemorrhage, midline shift or mass-effect. Tucker-white matter junction preserved. The brainstem and cerebellar hemispheres are unremarkable. No tonsillar ectopia. Craniocervical junction and cervical medullary junction intact. The expected venous and arterial flow voids are present. The orbital contents are unremarkable. The visualized paranasal sinuses are clear. No mastoid effusions are demonstrated. Impression: 1. No true restriction to suggest acute infarct. 2. No recent or remote hemorrhage, space-occupying lesions, midline shift or mass effect. 3. Age-appropriate cerebral volume loss. Minimal microangiopathic disease. This document has been electronically signed by: Gurwinder Yang MD on 03/08/2025 15:35:04
--- NOTE | ~2025-03-07 | CT_ITS ---
EXAMINATION: CT HEAD WITHOUT IV CONTRAST HISTORY: headache, vomiting, htn. TECHNIQUE: Unenhanced helical CT of the head was performed per standard departmental protocol. Coronal and sagittal reformats of the head were also evaluated. One or more of the following techniques was used for dose reduction: Automated exposure control, adjustment of the mA and/or kV according to patient size, use of iterative reconstruction technique. DLP: 522 mGy-cm COMPARISON: There are no prior studies available for comparison. FINDINGS: BRAIN: There is mild prominence of the ventricular system and cortical sulci, consistent with atrophy. Periventricular and subcortical white matter hypodensities are noted which are nonspecific, but often seen in the setting of small vessel ischemic disease. There is no mass effect or midline shift. No intra- or extra-axial fluid collections are identified. SINUSES: There is near complete opacification of the left sphenoid sinus. The mastoid air cells and middle ear cavities are well pneumatized. ORBITS: The visualized orbits are unremarkable. BONES/SOFT TISSUES: The extracranial soft tissues are unremarkable. The calvarium is intact. No suspicious lytic or sclerotic lesions. CT/CT head/brain wo IV con IMPRESSION: No acute intracranial abnormality. Electronically signed by: Howard Giang MD 03/07/2025 03:23 PM EDT
--- NOTE | ~2025-03-07 | CT_ITS ---
CLINICAL HISTORY: dizzy --- Additional Notes or Special Instructions: already had non con head CT CT head without contrast Comparison: Same date Findings: No intracranial mass, midline shift, hydrocephalus, or acute hemorrhage. Mild chronic ischemic white matter disease with mild volume loss. No acute process in sinuses or mastoids. No acute bony abnormality. Impression: No acute intracranial process CT angiogram head/tetlin of [place] with contrast, Multiplanar reconstructions and 3D postprocessing Comparison: None provided Findings: Suboptimal contrast bolus limits assessment. Greatest contrast density is in venous structures of neck and chest. Faint opacification of the intracranial arterial system noted. Severe stenosis noted distal left vertebral artery. No focal vascular abnormalities are identified. Dural venous sinuses are not assessed. Impression: Limited study as above Severe distal left vertebral stenosis CT angiogram of the neck/carotid arteries with contrast, Multiplanar reconstructions and MIPS Comparison: None provided Findings: Dense venous contrast limits assessment. Considerable artifact is created on chest images. Arterial contrast density is suboptimal. Great vessel origins grossly patent. Vertebral arteries are obscured proximally. No definite mid vertebral artery abnormality. Intracranial vertebral arteries discussed above. No definite carotid artery stenosis noted. Degenerative change throughout cervical spine. No acute bony abnormality. Impression: Limited study as discussed above No definite vascular abnormality in visualized structures This document has been electronically signed by: Morteza Mota MD on 03/07/2025 19:28:22
--- NOTE | ~2025-03-07 | CT_ITS ---
CLINICAL HISTORY: pain CT abdomen and pelvis with contrast Comparison: None provided Findings: Lung bases are clear. No acute bony abnormalities. Degenerative change spine and hips. Small hiatal hernia noted. Liver and spleen within normal limits. Pancreas and adrenal glands unremarkable. Cholelithiasis with moderate gallbladder distention. No significant focal renal abnormalities. Renal cysts, no stones or hydronephrosis. Abdominal aorta is normal in caliber. No free fluid or adenopathy in the pelvis. No diverticulitis. Appendix not identified. Uterus normal size. No adnexal abnormality. Impression: No acute process This document has been electronically signed by: Morteza Mota MD on 03/07/2025 19:21:48
--- NOTE | 2025-03-07 13:14 | ECG_ITS ---
Test Reason : nausea and vomiting Blood Pressure : */* mmHG Vent. Rate : 58 BPM Atrial Rate : 58 BPM P-R Int : 184 ms QRS Dur : 80 ms QT Int : 504 ms P-R-T Axes : 38 56 53 degrees QTcB Int : 494 ms Sinus bradycardia Prolonged QT Abnormal ECG No previous ECGs available Referred By: Magdalene Buckley Electronically Signed By: YANIRA PETTIT
--- NOTE | 2025-03-07 13:14 | ED.GENADULT ---
HPI - General Adult General Chief complaint: Abdominal Pain Stated complaint: NAUSEA,VOMITING, DIZZINESS Time Seen by Provider: 03/07/25 13:13 Source: patient, EMS, RN notes reviewed and old records reviewed Mode of arrival: EMS Limitations: no limitations History of Present Illness ED Provider: Ina HPI narrative: Patient is an 89-year-old female with history of hypertension, GERD, anxiety, anemia presenting to the emergency department with complaint of nausea and vomiting since this morning. Also currently complains of headache. Had some abdominal pain this morning but that is improved after vomiting. Denies diarrhea, states she had a normal bowel movement this morning. Denies fever. Daughter reports that she vomited several times at home and patient has vomited a small amount here. Denies any dysuria, frequency, hematuria or other urinary symptoms. Denies hematochezia or melena. States emesis has been nonbloody, nonbilious. Did not take her BP medication this morning due to vomiting. Denies any prior abdominal surgeries. MD complaint: nausea and vomiting Onset (ago): hour(s) Related Data Home Medications ?Medication ?Instructions ?Recorded ?Confirmed aspirin 81 mg tablet,delayed 81 mg PO DAILY 06/01/20 10/21/24 release (Adult Aspirin Regimen) flu vacc 2020-21(65yr 0.5 ml IM DIRECTED 06/01/20 10/21/24 up)-MF59C(PF) 60 mcg(15 mcgx4)/0.5 mL IM syringe multivitamin 1 tab PO DAILY 06/01/20 10/21/24 Previous Rx's ?Medication ?Instructions ?Recorded lisinopril 5 mg tablet 5 mg PO DAILY #90 tabs 04/05/24 cholecalciferol (vitamin D3) 25 25 mcg PO DAILY #90 tabs 04/18/24 mcg (1,000 unit) tablet escitalopram oxalate 10 mg tablet 10 mg PO DAILY #90 tabs 05/03/24 pantoprazole 40 mg tablet,delayed 40 mg PO DAILY #90 tabs 06/11/24 release simvastatin 20 mg tablet 20 mg PO BEDTIME #90 tabs 06/13/24 Allergies Allergy/AdvReac Type Severity Reaction Status Date / Time omeprazole (Prilosec) Allergy Unknown hives Verified 03/07/25 13:08 Review of Systems Review of Systems: as per hpi Yes all other systems are reviewed and are negative Constitutional: Constitutional: Reports as per [facility] Past Medical History Medical History Anxiety disorder GERD (gastroesophageal reflux disease) Dyslipidemia Essential hypertension Arm pain Shoulder pain, right Hx of fall Surgical History No pertinent past surgical history Family History Family History Father Pancreatic cancer Mother Hypertension Social History Social History Household Members Other:: lives with son, Housing: House Alcohol intake: current Alcohol intake frequency: a few times a month Patient Tobacco Use Status: Never used Tobacco Smoked in Last 30 Days: No e-Cigarette/Vaping Use: Never Used Use of substances other than those prescribed or required for medical reasons: No Advance Directives: No Advance Directives Information Provided: Yes Do you have a plan to hurt others: No Plan service: No Current occupational status: retired Cognitive needs: No Hearing needs: Yes Vision needs: Yes Physical Exam ED Vital Signs: Vital Signs - 24 hr 03/07/25 13:12 03/07/25 14:15 03/07/25 17:17 Temperature 97.5 F Pulse Rate 68 62 Respiratory Rate 18 Blood Pressure 194/84 H 175/69 H Pulse Oximetry 97 Oxygen Delivery Method Room Air 03/07/25 17:17 03/07/25 17:21 03/07/25 19:49 Temperature 97.6 F Pulse Rate 68 60 53 Respiratory Rate 20 Blood Pressure 175/73 H 186/78 H 182/74 H Pulse Oximetry 98 Oxygen Delivery Method Room Air 03/07/25 20:31 03/07/25 20:33 03/07/25 22:20 Temperature 97.5 F 97.7 F Pulse Rate 56 63 Respiratory Rate 18 20 Blood Pressure 164/75 H 164/75 H 160/65 H Pulse Oximetry 98 96 Oxygen Delivery Method Room Air Room Air 03/07/25 23:13 Temperature 97.6 F Pulse Rate 61 Respiratory Rate 16 Blood Pressure 148/56 H Pulse Oximetry 97 Oxygen Delivery Method Room Air BMI result Body Mass Index 24.5 Vital signs have been reviewed and appear to be correct. Blood pressure hypertensive. Heart rate normal. Respiratory rate normal. Temperature normal. Oxygen saturation normal. Const General: cooperative, healthy appearing and no acute distress Orientation/consciousness: oriented to person, oriented to place, oriented to time and patient oriented x3 Limitations: no limitations HENMT Head: Yes normocephalic and Yes atraumatic Ears: external ears normal General nose exam: Normal external nose present Face and sinus: Yes face symmetric Mouth: oropharynx normal and moist mucous membranes Throat: Yes uvula midline Eyes Pupils: Equal, round and reactive pupils present Neck Neck: Yes normal visual inspection and Yes supple Resp Effort & Inspection: normal respiratory effort and able to speak in complete sentences Auscultation: clear to auscultation bilaterally Cardio Rate: regular rate Rhythm: regular rhythm Heart sounds: S1 normal heart sound present and S2 normal heart sound present GI Palpation (GI): Soft to palpation and nontender Auscultation: normoactive bowel sounds General: Yes no CVA tenderness Back/Spine/Pelvis Back: no CVA tenderness Skin General skin exam: elasticity normal and turgor normal Neuro General: oriented to person, oriented to place, oriented to time, patient oriented x3, tone normal, moves all extremities, Normal light touch and pain sensation, no focal motor deficits, CN's II-XI intact bilaterally and deep tendon reflexes 2+ bilaterally Cranial nerves: Yes Equal, round and reactive pupils present Cognition (Neuro): normal cognition Motor exam (neuro): 5/5 motor strength present throughout, Normal motor muscle tone present throughout and Motor abnormalities not present Coordination: [id number] test normal, [id number] test normal and Romberg test negative Extrem General: Yes full ROM, Yes no pedal edema and Yes no calf tenderness Psych Mental Status: mental status grossly normal Affect: normal affect Thought process: Normal thought process present Course Reevaluation(s) Reevaluation #1: I Anaid Miller PA-C have accepted care of the patient and signed out pending p.o. challenge and final disposition. The patient is still nauseous, and dizzy. The dizziness presents randomly. It is not necessarily provoked with position change, although at times position change does cause symptoms. She is still actively vomiting. CT of the brain negative, no imaging of the abdomen obtained. I did attempt p.o. challenge the patient, did not go well. I will be scanning her abdomen and pelvis, I am also initiating angiograms of the head and neck to rule out posterior circulation CVA. I have independently reviewed the following tests: CT abdomen and pelvis:Findings: Lung bases are clear. No acute bony abnormalities. Degenerative change spine and hips. Small hiatal hernia noted. Liver and spleen within normal limits. Pancreas and adrenal glands unremarkable. Cholelithiasis with moderate gallbladder distention. No significant focal renal abnormalities. Renal cysts, no stones or hydronephrosis. Abdominal aorta is normal in caliber. No free fluid or adenopathy in the pelvis. No diverticulitis. Appendix not identified. Uterus normal size. No adnexal abnormality. Impression: No acute process CT angio head neck:CT head without contrast Comparison: Same date Findings: No intracranial mass, midline shift, hydrocephalus, or acute hemorrhage. Mild chronic ischemic white matter disease with mild volume loss. No acute process in sinuses or mastoids. No acute bony abnormality. Impression: No acute intracranial process CT angiogram head/elim ira of [place] with contrast, Multiplanar reconstructions and 3D postprocessing Comparison: None provided Findings: Suboptimal contrast bolus limits assessment. Greatest contrast density is in venous structures of neck and chest. Faint opacification of the intracranial arterial system noted. Severe stenosis noted distal left vertebral artery. No focal vascular abnormalities are identified. Dural venous sinuses are not assessed. Impression: Limited study as above Severe distal left vertebral stenosis CT angiogram of the neck/carotid arteries with contrast, Multiplanar reconstructions and MIPS Comparison: None provided Findings: Dense venous contrast limits assessment. Considerable artifact is created on chest images. Arterial contrast density is suboptimal. Great vessel origins grossly patent. Vertebral arteries are obscured proximally. No definite mid vertebral artery abnormality. Intracranial vertebral arteries discussed above. No definite carotid artery stenosis noted. Degenerative change throughout cervical spine. No acute bony abnormality. Impression: Limited study as discussed above No definite vascular abnormality in visualized structures Reevaluation #2: per the said guidelines.... the [employer] and associated societies recommend medical therapy as the mainstay of treatment, reserving endovascular or surgical intervention for refractory or highly symptomatic cases, due to limited evidence for procedural benefit. Medical management is the first-line treatment for vertebral artery stenosis, according to the [employer] and collaborating societies. This includes aggressive control of atherosclerotic risk factors (such as hypertension, hyperlipidemia, diabetes, and smoking cessation) and antiplatelet therapy, typically with aspirin. The rationale is that, although vertebral artery stenosis shares pathophysiology with carotid disease, randomized trials specifically addressing vertebral artery interventions are lacking, and medical therapy has demonstrated efficacy in reducing systemic vascular risk and preventing ischemic complications in other vascular beds.[1] For patients with acute ischemic syndromes in the vertebral artery territory, intravenous thrombolysis may be considered, but outcomes are variable. If there is angiographic evidence of thrombus at the origin or extracranial portion of the vertebral artery, anticoagulation is generally recommended for at least 3 months, regardless of initial thrombolytic therapy.[1] Endovascular interventions (such as angioplasty and stenting) may be considered in select cases, particularly for symptomatic patients who have failed medical therapy. However, the [employer] notes that available data are limited, and the only randomized trial (CAVATAS) did not demonstrate a difference in outcomes between stenting and medical therapy for vertebral artery stenosis. The annual stroke risk after angioplasty is approximately 3%, and restenosis rates are influenced by lesion location and complexity.[1] In summary, the [place] and associated societies recommend medical therapy as the mainstay of treatment, reserving endovascular or surgical intervention for refractory or highly symptomatic cases, due to limited evidence for procedural benefit.[1] 10:54 PM Message sent at 10:54 PM. 30 days left We will be giving aspirin, high-dose statin 80 mg, and starting Plavix 75 mg..... Patient will be admitted for MRI. Time: 23:21 Consultations Consultation #1: per Dr. Souza Time: 21:25 Consultation #2: [facility] neurology.....Dr. Hughes says to call [facility]....paging now......1040 pm.... Speaking with Dr. Lentz, he states he can not consult on this patient given he is not credentialed at [facility], he can not give advice on [facility] patient's that are not going to be transferred to [facility]. He also did state there is no cause for transfer for acute intervention Time: 22:28 Medications Administered Discontinued Medications Generic Name Dose Route Start Last Admin Trade Name Wilfredo PRN Reason Stop Dose Admin Sodium Chloride 1,000 mls @ 999 mls/hr 03/07/25 13:30 03/07/25 15:55 Ns IV 03/07/25 14:30 Infused .Q1H1M TINO Infusion Acetaminophen 1,000 mg in 100 mls @ 400 mls/hr 03/07/25 13:27 03/07/25 15:56 Ofirmev IV 03/07/25 13:41 Infused ONCE ONE Infusion Iohexol 100 ml 03/07/25 18:27 03/07/25 18:27 Iohexol 350 Mg/Ml 100 Ml Infus..Btl IV 03/07/25 18:28 85 ml ONCE ONE Administration Lisinopril 5 mg 03/07/25 20:17 03/07/25 20:33 Lisinopril 5 Mg Tablet PO 03/07/25 20:18 5 mg ONCE ONE Administration Protocol Meclizine HCl 25 mg 03/07/25 19:21 03/07/25 19:37 Meclizine Hcl 25 Mg Tablet PO 03/07/25 19:22 25 mg ONCE ONE Administration Midazolam HCl 2 mg 03/07/25 17:25 03/07/25 17:29 Midazolam Hcl 2 Mg/2 Ml Vial IVPUSH 03/07/25 17:26 2 mg ONCE ONE Administration Ondansetron HCl 4 mg 03/07/25 13:27 03/07/25 14:11 Ondansetron Hcl 4 Mg/2 Ml Vial IVPUSH 03/07/25 13:28 4 mg ONCE ONE Administration Ondansetron HCl 4 mg 03/07/25 16:17 03/07/25 16:33 Ondansetron Hcl 4 Mg/2 Ml Vial IVPUSH 03/07/25 16:18 4 mg ONCE ONE Administration Medical Decision Making Medical Decision Making MDM Narrative: Patient is an 89-year-old female with history of hypertension, GERD, anxiety, anemia presenting to the emergency department with complaint of nausea and vomiting since this morning. On exam patient is awake, A+Ox3, hypertensive, VS otherwise WNL, afebrile, normal neurological exam without focal deficits, physical exam findings as above. Given reported symptoms and physical exam findings, initial differential includes but is not limited to viral illness, bowel obstruction, gastritis, cholecystitis. Less likely CVA/ICH as no focal deficits but will obtain CT head. Labs notable for no leukocytosis, mild anemia similar to prior values, no significant electrolyte abnormalities, mildly elevated T bili, however no abdominal tenderness on exam. CT head notable for no evidence of ICH. My interpretation is in agreement with the radiologist's interpretation. Patient reporting that she initially felt better after IV fluids and Zofran, however, after getting up to use the commode she initially felt okay but upon sitting in the bed afterwards she began to feel nauseated again. Will order additional IV Zofran. Urinalysis is without evidence of infection. Viral serology negative. Patient signed out to IZZY Albarado pending PO trial. Differential Diagnosis Differential Diagnoses: The differential diagnosis associated with the presentation includes as per [facility] Admission/Observation Consideration of admission/observation: Escalation of care including admission/observation considered Patient would have been admitted to the hospital and transferred to appropriate facility had their clinical presentation warranted hospital admission. Lab Data [facility] Lab Attestation statement: I reviewed the patient's lab results. as per [facility] 03/07/25 14:08 03/07/25 14:08 Labs: Lab Results 03/07/25 03/07/25 Range/Units 14:08 15:52 WBC 6.3 (4.8-10.8) X10*3/uL RBC 3.77 L (4.20-5.50) X10*6/uL Hgb 11.8 L (12.0-16.0) g/dl Hct 32.9 L (37.0-47.0) % MCV 87.3 (80.0-98.0) fL MCH 31.3 (27.0-33.0) pg MCHC 35.9 H (31.0-35.0) g/dl RDW 12.4 (11.0-16.0) % Plt Count 187 (160-400) X10*3/uL MPV 9.8 (9.4-12.3) fL Immature Gran % (Auto) 0.3 (0.0-0.4) % Neut % (Auto) 83.2 H (45-73) % Lymph % (Auto) 10.2 L (20-40) % [place] % (Auto) 5.7 (2-11) % Eos % (Auto) 0.3 (0-4) % Baso % (Auto) 0.3 (0-2) % Lymph # (Auto) 0.6 L (1.2-4.9) X10*3/uL [place] # (Auto) 0.4 (0.1-1.2) X10*3/uL Eos # (Auto) 0.0 (0.0-0.4) X10*3/uL Baso # (Auto) 0.0 (0.0-0.2) X10*3/uL Abs Immat Gran (auto) 0.02 (0.00-0.03) X10*3/uL Absolute Neuts (auto) 5.2 (2.0-8.3) x10*3/uL Absolute Nucleated RBC 0.000 (0.0-0.012) X10*3/uL Nucleated RBC % (auto) 0.0 (0.0-0.2) /100WBC PT 12.7 H (10.9-12.4) SEC INR 1.1 (0.9-1.1) Sodium 141 (135-145) mmol/L Potassium 3.9 (3.3-5.1) mmol/L Chloride 104 (96-108) mmol/L Carbon Dioxide 27 (22-29) mmol/L Anion Gap 14 (12-20) BUN 19 H (9-16) mg/dL Creatinine 0.91 (0.5-1.4) mg/dL Estim Creat Clear Calc 34.5 Estimated GFR 58 Random Glucose 126 H (60-115) mg/dL Calcium 9.4 (8.4-10.2) mg/dL Magnesium 1.9 (1.6-2.6) mg/dL Total Bilirubin 1.3 H (0.0-1.0) mg/dL AST 24 (5-31) U/L ALT 8 (0-31) U/L Alkaline Phosphatase 93 (39-117) U/L Troponin I High Sens < 2.7 (<3.5-17.0) ng/L Total Protein 7.1 (6.5-8.0) g/dL Albumin 4.3 (3.5-5.0) g/dL Urine Color Yellow Urine Appearance Clear Urine pH 8.5 (5.0-9.0) Ur Specific [place] 1.010 (1.005-1.025) Urine Protein Negative (Neg-Trace) mg/dL Urine Glucose (UA) Negative (Negative) mg/dL Urine Ketones 15 (Negative) mg/dL Urine Blood Negative (Negative) Urine Nitrite Negative (Negative) Ur Leukocyte Esterase Negative (Negative) COVID-19 (ALL) Negative (Negative) COVID-19 Clin Com See Note Influenza Type A (ANA) Negative (Negative) Influenza Type B (ANA) Negative (Negative) Influenza A & B Note See Note Independent Interpretation I performed an independent interpretation of an: EKG (EKG shows sinus bradycardia, rate 58 beats per minute, normal UT interval, slightly prolonged QTC) and CT Scan Interpretation: CT head without evidence of ICH Radiology Impression Discussion of test interpretation with radiology: I have reviewed the radiologist's reading. Radiologist Impression: CT/CT head/brain wo IV con IMPRESSION: No acute intracranial abnormality. Independent Historian Clinical information obtained from an independent historian. History obtained from or confirmed by: Other (daughter) External Record Review External record reviewed: Inpatient record, Office record and Outpatient record Critical Care Time Critical Care Time Critical Care Time: Yes Total Critical Care Time: 45 Attestation: I Anaid Miller PA-C have personally performed 45 minutes critical care time not including lines and procedures; need for advanced imaging, posterior circulation CVA studies, acute finding, consult [facility], consult [facility] stroke Neurology, hospital admission for MRI Discharge Plan Discharge Clinical Impression: Nausea & vomiting, Dizziness, Stenosis of left vertebral artery Patient Disposition: Admitted As Inpatient
[2025-03-07 14:12] LABS: MANUAL DIFF FLAG NO
[2025-03-07 14:19] LABS: Hematocrit 32.9 % (37.0-47.0); Hemoglobin 11.8 g/dl (12.0-16.0); Imm Gran Abs Auto 0.02 X10*3/uL (0.00-0.03); Imm Gran Pct Auto 0.3 % (0.0-0.4); Lymphocytes Absolute Auto 0.6 X10*3/uL (1.2-4.9); Mean Corpuscular HGB Conc 35.9 g/dl (31.0-35.0); Mean Corpuscular Hemoglobin 31.3 pg (27.0-33.0); Mean Corpuscular Volume 87.3 fL (80.0-98.0); NRBC Abs Auto 0.000 X10*3/uL (0.0-0.012); NRBC Pct Auto 0.0 /100WBC (0.0-0.2); Platelet Count 187 X10*3/uL (160-400); Red Blood Count 3.77 X10*6/uL (4.20-5.50); White Blood Count 6.3 X10*3/uL (4.8-10.8)
[2025-03-07 14:20] LABS: INTERNATIONAL NORM RATIO 1.1 (0.9-1.1); Prothrombin Time 12.7 SEC (10.9-12.4)
[2025-03-07 14:30] LABS: Alanine Aminotransferase 8 U/L (0-31); Albumin Level 4.3 g/dL (3.5-5.0); Alkaline Phosphatase 93 U/L (39-117); Anion Gap 14 (12-20); Aspartate Amino Transferase 24 U/L (5-31); Blood Urea Nitrogen 19 mg/dL (9-16); Calcium 9.4 mg/dL (8.4-10.2); Carbon Dioxide 27 mmol/L (22-29); Chloride 104 mmol/L (96-108); Creatinine Clr Calc Pharmacy 34.5; Estimated Glomerular Filt Rate 58; Magnesium 1.9 mg/dL (1.6-2.6); Potassium 3.9 mmol/L (3.3-5.1); Sodium 141 mmol/L (135-145); Total Protein 7.1 g/dL (6.5-8.0)
[2025-03-07 14:37] LABS: Troponin-I High Sensitivity < 2.7 ng/L (<3.5-17.0)
[2025-03-07 14:38] LABS: COVID-19 Test Negative (Negative); IDNOW Serial# 08D9AD1C; IDNOW Serial# 58CA691E; Influenza B2 Negative (Negative)
[2025-03-07 16:03] LABS: Appearance Urine Clear; Glucose Urine UA Negative (Negative); PH 8.5 (5.0-9.0); Specific Gravity - Urine 1.010 (1.005-1.025)
--- NOTE | 2025-03-07 16:47 | MHC.EDTECH ---
Ekg delay do to being staff challenge and high acuity at the ER. nurse aware
[2025-03-07] MEDS: iohexoL 350 MG/ML 100 ML INFUS..BTL IV (18:27)
--- NOTE | 2025-03-07 20:36 | PC.NURSE ---
assumed care of pt, daughter at bedside, medicated per MAR, pt tolerated well. currently denies nausea and dizziness.
--- NOTE | 2025-03-07 22:17 | PC.NURSE ---
pt daughter left for the night, pt resting, no complaints at this time.
--- NOTE | 2025-03-07 23:45 | PC.NURSE ---
pt medicated per MAR.
--- NOTE | 2025-03-08 00:54 | P.HPHOSP_ITS ---
History of Present Illness Date of Service: 03/08/25 Attending physician on admission: Rashida Simms Chief Complaint: dizziness Patient is an 89-year-old female with past medical history severe hearing loss, hypertension, vitamin-D deficiency, anxiety, GERD, dyslipidemia, depression presents to the emergency department initially with complaints of abdominal pain associated with nausea vomiting and persistent dizziness. Patient was monitored closely in the ED and as vomiting resolved, the abdominal pain and nausea and vomiting relinquished but patient continued to have dizziness. Patient was sent for a CTA of the head and neck and was found to have severe left vertebral artery stenosis. Head CT was negative for any acute findings. Abdominal CT also negative for any acute findings. Request for admission for neurological consultation and MRI in the a.m. For all her symptoms have resolved including her dizziness. Patient's was resting comfortably. Patient is very hard of hearing. Review of past medical history and past surgical history with minimal findings. Patient states it is a 1st time she has been in the hospital requiring hospitalization beyond having children. Patient denies history of smoking, alcohol use or diabetes. Review of Systems 2 Review of Systems: Patient currently denying any chest pain, shortness of breath at rest or with exertion, abdominal pain, nausea or vomiting. Patient is not having issues with the diarrhea or constipation. Patient states that her dizziness has resolved and is having no balance issues with ambulation. Patient is not having any headaches or visual changes at this time. Yes all other systems are reviewed and are negative [facility] Medical History (Updated 03/08/25 @ 01:16 by RENUKA Bolden-KYRA) Vitamin D deficiency Heart murmur Hearing loss Anxiety disorder GERD (gastroesophageal reflux disease) Dyslipidemia Essential hypertension Arm pain Shoulder pain, right Hx of fall Cognitive capacity: Alert and orientated x3 Functional capacity: independent ambulation Patient : No Family History Father Pancreatic cancer Mother Hypertension Surgical History No pertinent past surgical history Social History Household Members Other:: lives with son, Housing: House Alcohol intake: current Alcohol intake frequency: a few times a month Patient Tobacco Use Status: Never used Tobacco Smoked in Last 30 Days: No e-Cigarette/Vaping Use: Never Used Use of substances other than those prescribed or required for medical reasons: No Advance Directives: No Advance Directives Information Provided: Yes Do you have a plan to hurt others: No Plan Patient : No service: No Current occupational status: retired Cognitive needs: No Hearing needs: Yes Vision needs: Yes Ebola Risk: Travel/Contact With Anyone From Affected Area/s: No Has Patient Experienced Ebola Symptoms: No Meds Allergies Allergy/AdvReac Type Severity Reaction Status Date / Time omeprazole (Prilosec) Allergy Unknown hives Verified 03/07/25 13:08 Home Medications ?Medication ?Instructions ?Recorded ?Confirmed ?Last Taken ?Type aspirin 81 mg tablet,delayed 81 mg PO DAILY 06/01/20 0 10/21/24 Unknown History release (Adult Aspirin Regimen) flu vacc 2020-21(65yr 0.5 ml IM DIRECTED 10/21/24 Unknown History up)-MF59C(PF) 60 mcg(15 mcgx4)/0.5 mL IM syringe multivitamin 1 tab PO DAILY 06/01/2011/10 Unknown History Physical Exam 2 Vital Signs and Narrative: Vital Signs: Last Vital Signs Temp 97.6 F 03/07/25 23:13 Pulse 61 03/07/25 23:13 Resp 16 03/07/25 23:13 BP 148/56 H 03/07/25 23:13 Pulse Ox 97 03/07/25 23:13 O2 Del Method Room Air 03/07/25 23:13 BMI result Body Mass Index 24.5 Alert and orientated X3, able to give good history. Patient is very hard of hearing Neuro: CN II-X11 intact, no deficits, visual acuity intact EYES: PERRLA, EOM intact, sclerae nonicteric ENT: hearing intact, no issues with swallowing, uvula midline, lips moist, nares patent no epistaxis Cardiac: S1 S2 RRR bradycardic, no murmur, no JVD, no edema in Lower ext Pulmonary: lungs clear to auscultation B Abdominal: BS active in all 4 quadrants, no guarding, tenderness, rebounding MSK: strength 5/5 upper and lower extremities : no CVA tenderness no bladder distension Extremities: no edema in lower extremities, PT and DP pulses palpable +2 Psych: mood stable, judgement and insight good Skin: No new rashes or lesions Results Labs 03/07/25 14:08 03/07/25 14:08 Labs: Laboratory Results - last 24 hr 03/07/25 03/07/25 14:08 15:52 MCV 87.3 MCH 31.3 MCHC 35.9 H RDW 12.4 Plt Count 187 MPV 9.8 Immature Gran % (Auto) 0.3 Neut % (Auto) 83.2 H Lymph % (Auto) 10.2 L [place] % (Auto) 5.7 Eos % (Auto) 0.3 Baso % (Auto) 0.3 Lymph # (Auto) 0.6 L [place] # (Auto) 0.4 Eos # (Auto) 0.0 Baso # (Auto) 0.0 Abs Immat Gran (auto) 0.02 Absolute Neuts (auto) 5.2 Absolute Nucleated RBC 0.000 Nucleated RBC % (auto) 0.0 PT 12.7 H INR 1.1 Anion Gap 14 Estim Creat Clear Calc 34.5 Estimated GFR 58 Random Glucose 126 H Calcium 9.4 Magnesium 1.9 Total Bilirubin 1.3 H AST 24 ALT 8 Alkaline Phosphatase 93 Troponin I High Sens < 2.7 Total Protein 7.1 Albumin 4.3 Urine Color Yellow Urine Appearance Clear Urine pH 8.5 Ur Specific [place] 1.010 Urine Protein Negative Urine Glucose (UA) Negative Urine Ketones 15 Urine Blood Negative Urine Nitrite Negative Ur Leukocyte Esterase Negative COVID-19 (ALL) Negative COVID-19 Clin Com See Note Influenza Type A (ANA) Negative Influenza Type B (ANA) Negative Influenza A & B Note See Note ECG Attestation: I personally reviewed and interpreted this ECG as follows: (Sinus Pipo with QTC of 494 and normal MD interval) Prior ECG tracings: available for review Imaging Radiologist's Impressions: Impressions Head CT 03/07/25 15:04 IMPRESSION: No acute intracranial abnormality. Electronically signed by: Howard Giang MD 03/07/2025 03:23 PM EDT RP ABD CT Impression: No acute process CT angiogram head/[place] with contrast, Multiplanar reconstructions and 3D postprocessing Comparison: None provided Findings: Suboptimal contrast bolus limits assessment. Greatest contrast density is in venous structures of neck and chest. Faint opacification of the intracranial arterial system noted. Severe stenosis noted distal left vertebral artery. No focal vascular abnormalities are identified. Dural venous sinuses are not assessed. Impression: Limited study as above Severe distal left vertebral stenosis Assessment and Plan (1) Stenosis of left vertebral artery: Status: Acute (2) Dizziness: Status: Acute Plan Patient is an 89-year-old female with past medical history hypertension, vitamin-D deficiency, anxiety, GERD, dyslipidemia, depression presents to the emergency department initially with complaints of abdominal pain associated with nausea vomiting and persistent dizziness. Patient's GI symptoms resolved and a normal abdominal CT scan resulted. Patient stated her dizziness persisted so ED provider ordered a CTA of the head and neck and found severe left vertebral artery stenosis. ED Request for MRI and Neurology consultation prompted admission. Patient deferred need for this creative writer to update family on admission. Patient states daughter will return in the a.m.. Dizziness and newly diagnosed severe stenosis of left vertebral artery Neurology consulted MRI of the brain ordered Lipid panel in the a.m. Continue statin Fall prevention measures ordered Neuro exam was intact, no evidence of cognitive decline Prolonged QTC with sinus Pipo Magnesium 1.9, administering 1 g of magnesium Repeat EKG after 08:00 Holding Lexapro Continue telemetry Hypertension Continue lisinopril Avoid hypotension Low-sodium diet GERD Ordered omeprazole Avoid food triggers Hyperlipidemia Lipid panel in the a.m. Continue simvastatin or equivalent Cardiac diet Depression/anxiety QTC 494, repeat in the a.m. Hold S citalopram DVT prophylaxis: Lovenox Med rec pending Full Code status Quality Stroke Does the patient have a stroke diagnosis?: No Reason for No Anti-thrombotic by Day Two: N/A - Med Ordered VTE Prior VTE?: No VTE Risk Level:: Medical - moderate - high VTE Device Contraindication: N/A - Device Ordered VTE Drug Contraindication: N/A - Med Ordered
[2025-03-08 03:59] LABS: MANUAL DIFF FLAG NO
[2025-03-08 04:01] LABS: Hematocrit 31.6 % (37.0-47.0); Hemoglobin 11.0 g/dl (12.0-16.0); Imm Gran Abs Auto 0.03 X10*3/uL (0.00-0.03); Imm Gran Pct Auto 0.4 % (0.0-0.4); Lymphocytes Absolute Auto 1.4 X10*3/uL (1.2-4.9); Mean Corpuscular HGB Conc 34.8 g/dl (31.0-35.0); Mean Corpuscular Hemoglobin 31.1 pg (27.0-33.0); Mean Corpuscular Volume 89.3 fL (80.0-98.0); NRBC Abs Auto 0.000 X10*3/uL (0.0-0.012); NRBC Pct Auto 0.0 /100WBC (0.0-0.2); Platelet Count 178 X10*3/uL (160-400); Red Blood Count 3.54 X10*6/uL (4.20-5.50); White Blood Count 7.1 X10*3/uL (4.8-10.8)
--- NOTE | 2025-03-08 04:06 | PC.NURSE ---
pt being helped to commode, noticed IV out of L arm. New IV placed in R ac
[2025-03-08 04:15] LABS: Anion Gap 11 (12-20); Blood Urea Nitrogen 14 mg/dL (9-16); Calcium 8.9 mg/dL (8.4-10.2); Carbon Dioxide 25 mmol/L (22-29); Chloride 108 mmol/L (96-108); Cholesterol 160 mg/dL (<200); Creatinine Clr Calc Pharmacy 34.9; Estimated Glomerular Filt Rate 59; HDL Cholesterol 44 mg/dL (>40); Potassium 3.4 mmol/L (3.3-5.1); Sodium 141 mmol/L (135-145); Triglycerides 85 mg/dL (<150)
[2025-03-08 06:17] VITALS: BP 148/63; PULSE 62; RESP 14; TEMP 36.4; O2SAT 98
[2025-03-08 07:30] VITALS: BP 136/59; PULSE 54; RESP 14; TEMP 36.9; O2SAT 96
[2025-03-08] MEDS: 0.9 % Sodium Chloride Flush 3 ML SYRINGE IVFLUSH ×3 (07:37→20:43)
--- NOTE | 2025-03-08 08:00 | ECG_ITS ---
Test Reason : RECKECK QTC Blood Pressure : */* mmHG Vent. Rate : 66 BPM Atrial Rate : * BPM P-R Int : * ms QRS Dur : 76 ms QT Int : 464 ms P-R-T Axes : * 59 70 degrees QTcB Int : 486 ms Normal sinus rhythm Prolonged QT When compared with ECG of 07-Mar-2025 16:18, No significant changes seen Referred By: Teresa Meléndez Electronically Signed By: YANIRA PETTIT
[2025-03-08 08:20] VITALS: BP 134/58; PULSE 66; RESP 13; TEMP 36.6; O2SAT 96
--- NOTE | 2025-03-08 08:42 | HO.NURTONUR ---
Pt alert and oriented, forgetful. Feels slightly dizzy, but no nausea, vomiting or other symptoms. Using commode at bedside, standby assist. Tolerated breakfast well. Awaiting consult. Family in the room , aware of admit to floor. IV in right AC, no fluids. Vitlas WNL on room air.
[2025-03-08 09:37] VITALS: BMI 23.2
--- NOTE | 2025-03-08 10:14 | MHC.CM.PN ---
CM met with Patient and her Daughter at bedside and addressed IMM with her, providing Patient with the original and a copy has been placed on the chart. 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 Home/self care is Patient's goal and CM has initiated and will follow for dc planning. PCP is Dr. Cady Orr and Daughter/Inez is the HCP. Daughter will transport to home at dc.
--- NOTE | 2025-03-08 10:48 | P.PNIM_ITS ---
Subjective Subjective Date of Service: 03/09/25 Interval History: f/u on vertigo was feeling better, no sing of cva Physical Exam 2 Vital Signs: Vital Signs: Last Vital Signs Temp 97.9 F 03/08/25 08:20 Pulse 66 03/08/25 08:20 Resp 13 03/08/25 08:20 BP 134/58 L 03/08/25 08:20 Pulse Ox 96 03/08/25 08:20 O2 Del Method Room Air 03/08/25 08:20 BMI result Body Mass Index 23.2 Neuro: intact, was alert and oriented x 3 Objective Data Active Medications Acetaminophen (Acetaminophen 325 Mg Tablet) 650 mg PO Q6H PRN PRN Reason: Pain, Mild 1-3,fever,headache Albuterol/Ipratropium (Albuterol/Iprat 2.5/0.5mg 3 Ml Ampul.Neb) 3 ml INHALE Q4H PRN PRN Reason: Shortness of Breath/Wheezing Calcium Carbonate (Calcium Carbonate 750 Mg Tab.Chew) 750 mg PO Q4H PRN PRN Reason: Heartburn Enoxaparin Sodium (Enoxaparin Sodium 40 Mg/0.4 Ml Syringe) 40 mg SUBCUT Q24H [facility] Last Admin: 03/08/25 01:11 Dose: 40 mg Documented By: MELANIE Magnesium Hydroxide (Milk Of Magnesia 30 Ml Oral.Susp) 30 ml PO DAILY PRN PRN Reason: Constipation Melatonin (Melatonin 3 Mg Tablet) 6 mg PO BEDTIME PRN PRN Reason: Insomnia Omeprazole (Omeprazole 20 Mg Capsule.Dr) 20 mg PO DAILY@0630 [facility] Last Admin: 03/08/25 06:01 Dose: 20 mg Documented By: MELANIE Ondansetron HCl (Ondansetron Hcl 4 Mg/2 Ml Vial) 4 mg IVPUSH Q8H PRN PRN Reason: Nausea and Vomiting Polyethylene Glycol (Polyethylene Glycol 3350 17 Gm Powd.Pack) 17 gm PO DAILY PRN PRN Reason: Constipation Senna (Sennosides 8.6 Mg Tablet) 17.2 mg PO BEDTIME [facility] Sodium Chloride (0.9 % Sodium Chloride Flush 3 Ml Syringe) 3 ml IVFLUSH QSHIFT [facility] Last Admin: 03/08/25 07:37 Dose: 3 ml Documented By: ROLAN Labs 03/08/25 03:46 03/08/25 03:46 Labs: Laboratory Results - last 24 hr 03/07/25 03/07/25 03/08/25 14:08 15:52 03:46 MCV 87.3 89.3 MCH 31.3 31.1 MCHC 35.9 H 34.8 RDW 12.4 12.6 Plt Count 187 178 MPV 9.8 10.1 Immature Gran % (Auto) 0.3 0.4 Neut % (Auto) 83.2 H 68.4 Lymph % (Auto) 10.2 L 19.8 L [place] % (Auto) 5.7 9.8 Eos % (Auto) 0.3 1.3 Baso % (Auto) 0.3 0.3 Lymph # (Auto) 0.6 L 1.4 [place] # (Auto) 0.4 0.7 Eos # (Auto) 0.0 0.1 Baso # (Auto) 0.0 0.0 Abs Immat Gran (auto) 0.02 0.03 Absolute Neuts (auto) 5.2 4.8 Absolute Nucleated RBC 0.000 0.000 Nucleated RBC % (auto) 0.0 0.0 PT 12.7 H INR 1.1 Anion Gap 14 11 L Estim Creat Clear Calc 34.5 34.9 Estimated GFR 58 59 Random Glucose 126 H 90 Calcium 9.4 8.9 Magnesium 1.9 Total Bilirubin 1.3 H AST 24 ALT 8 Alkaline Phosphatase 93 Troponin I High Sens < 2.7 Total Protein 7.1 Albumin 4.3 Triglycerides 85 Cholesterol 160 LDL Cholesterol, Calc 99 HDL Cholesterol 44 Urine Color Yellow Urine Appearance Clear Urine pH 8.5 Ur Specific [place] 1.010 Urine Protein Negative Urine Glucose (UA) Negative Urine Ketones 15 Urine Blood Negative Urine Nitrite Negative Ur Leukocyte Esterase Negative COVID-19 (ALL) Negative COVID-19 Clin Com See Note Influenza Type A (ANA) Negative Influenza Type B (ANA) Negative Influenza A & B Note See Note Assessment and Plan (1) Stenosis of left vertebral artery: Status: Acute (2) Vertigo: Status: Acute Plan Patient is an 89-year-old female with past medical history hypertension, vitamin-D deficiency, anxiety, GERD, dyslipidemia, depression presents to the emergency department initially with complaints of abdominal pain associated with nausea vomiting and persistent dizziness. Patient's GI symptoms resolved and a normal abdominal CT scan resulted. Patient stated her dizziness persisted so ED provider ordered a CTA of the head and neck and found severe left vertebral artery stenosis. ED Request for MRI and Neurology consultation prompted admission. Patient deferred need for this comic book writer to update family on admission. Patient states daughter will return in the a.m.. N/V and abd discomfort, CT no acute finding and resolved ' Dizziness and vertigo, likely vestibular neuronitis Neurology consulted MRI of the brain ordered Lipid panel in the a.m. Continue statin Fall prevention measures ordered Neuro exam was intact, no evidence of cognitive decline Left vertebral distal stenosis on CTA no well appreciated by Neurology, Prolonged QTC with sinus Pipo Magnesium 1.9, administering 1 g of magnesium Holding Lexapro Continue telemetry Hypertension Continue lisinopril Avoid hypotension Low-sodium diet GERD Ordered omeprazole Avoid food triggers Hyperlipidemia Lipid panel in the a.m. Continue simvastatin or equivalent Cardiac diet Depression/anxiety QTC 494, repeat in the a.m. Hold S citalopram DVT prophylaxis: Lovenox Full Code status Quality Stroke Does the patient have a stroke diagnosis?: No Reason for No Anti-thrombotic by Day Two: N/A - Med Ordered VTE Prior VTE?: No VTE Risk Level:: Medical - moderate - high VTE Device Contraindication: N/A - Device Ordered VTE Drug Contraindication: N/A - Med Ordered
[2025-03-08 12:00] VITALS: BP 144/68; PULSE 73; RESP 19; TEMP 37.1; O2SAT 97
--- NOTE | 2025-03-08 12:28 | PM.NEUROCN ---
History of Present Illness Data of Consult Service Date: 03/08/25 Primary Care Provider: Cady Orr MD [facility] Reason for consult: Dizziness This is an 89-year-old female with severe hearing loss, hypertension, vitamin-D deficiency, anxiety, GERD, dyslipidemia, depression presents to the emergency department initially with complaints of acute onset of vertigo along with abdominal pain associated with nausea, vomiting. Patient was sent for a CTA of the head and neck and was reported to have severe left vertebral artery stenosis. Head CT was negative for any acute findings. Abdominal CT also negative for any acute findings. All her symptoms have resolved including her dizziness. Patient's was resting comfortably. Patient is very hard of hearing. No previous history of stroke or vertigo. She is treated for hypertension and hyperlipidemia. [facility] Past Medical History Medical History (Updated 03/08/25 @ 13:22 by Angelina Zabala MD) Vitamin D deficiency Heart murmur Hearing loss Anxiety disorder GERD (gastroesophageal reflux disease) Dyslipidemia Essential hypertension Arm pain Shoulder pain, right Hx of fall Family History Family History Father Pancreatic cancer Mother Hypertension Surgical History Surgical History No pertinent past surgical history Social History Social History Household Members: Family Household Members Other:: lives with son, Housing: House Do you presently have visiting nurse or other home services: Yes (meals on wheels) Alcohol intake: current Alcohol intake frequency: a few times a month Patient Tobacco Use Status: Never used Tobacco e-Cigarette/Vaping Use: Never Used service: No Current occupational status: retired Cognitive needs: No Hearing needs: Yes Vision needs: Yes Travel History Ebola Risk: Travel/Contact With Anyone From Affected Area/s: No Has Patient Experienced Ebola Symptoms: No Meds Allergies Allergy/AdvReac Type Severity Reaction Status Date / Time omeprazole (Prilosec) Allergy Unknown hives Verified 03/07/25 13:08 Active Medications: Current Medications Acetaminophen (Acetaminophen 325 Mg Tablet) 650 mg PO Q6H PRN PRN Reason: Pain, Mild 1-3,fever,headache Albuterol/Ipratropium (Albuterol/Iprat 2.5/0.5mg 3 Ml Ampul.Neb) 3 ml INHALE Q4H PRN PRN Reason: Shortness of Breath/Wheezing Calcium Carbonate (Calcium Carbonate 750 Mg Tab.Chew) 750 mg PO Q4H PRN PRN Reason: Heartburn Enoxaparin Sodium (Enoxaparin Sodium 40 Mg/0.4 Ml Syringe) 40 mg SUBCUT Q24H [facility] Last Admin: 03/08/25 01:11 Dose: 40 mg Magnesium Hydroxide (Milk Of Magnesia 30 Ml Oral.Susp) 30 ml PO DAILY PRN PRN Reason: Constipation Melatonin (Melatonin 3 Mg Tablet) 6 mg PO BEDTIME PRN PRN Reason: Insomnia Omeprazole (Omeprazole 20 Mg Capsule.Dr) 20 mg PO DAILY@0630 [facility] Last Admin: 03/08/25 06:01 Dose: 20 mg Ondansetron HCl (Ondansetron Hcl 4 Mg/2 Ml Vial) 4 mg IVPUSH Q8H PRN PRN Reason: Nausea and Vomiting Polyethylene Glycol (Polyethylene Glycol 3350 17 Gm Powd.Pack) 17 gm PO DAILY PRN PRN Reason: Constipation Senna (Sennosides 8.6 Mg Tablet) 17.2 mg PO BEDTIME [facility] Sodium Chloride (0.9 % Sodium Chloride Flush 3 Ml Syringe) 3 ml IVFLUSH QSHIFT [facility] Last Admin: 03/08/25 07:37 Dose: 3 ml Home Medications ?Medication ?Instructions ?Recorded ?Confirmed ?Last Taken ?Type aspirin 81 mg tablet,delayed 81 mg PO DAILY 06/01/20 10/21/24 Unknown History release (Adult Aspirin Regimen) flu vacc 2020-21(65yr 0.5 ml IM DIRECTED 06/01/20 10/21/24 Unknown History up)-MF59C(PF) 60 mcg(15 mcgx4)/0.5 mL IM syringe multivitamin 1 tab PO DAILY 06/01/20 10/21/24 Unknown History Physical Exam Vital Signs: Vital Signs: Last Vital Signs Temp 97.9 F 03/08/25 08:20 Pulse 66 03/08/25 08:20 Resp 13 03/08/25 08:20 BP 134/58 L 03/08/25 08:20 Pulse Ox 96 03/08/25 08:20 O2 Del Method Room Air 03/08/25 08:20 BMI result Body Mass Index 23.2 Neuro: Other: Normal nonfocal neurological examination. No positional nystagmus. She is very hard of hearing. Results Labs 03/08/25 03:46 03/08/25 03:46 Labs: Short CBC 03/07/25 03/08/25 Range/Units 14:08 03:46 WBC 6.3 7.1 (4.8-10.8) X10*3/uL Hgb 11.8 L 11.0 L (12.0-16.0) g/dl Hct 32.9 L 31.6 L (37.0-47.0) % Plt Count 187 178 (160-400) X10*3/uL BMP 03/07/25 03/08/25 14:08 03:46 Sodium 141 141 Potassium 3.9 3.4 Chloride 104 108 Carbon Dioxide 27 25 BUN 19 H 14 Creatinine 0.91 0.90 Calcium 9.4 8.9 Liver Function 03/07/25 Range/Units 14:08 Total Bilirubin 1.3 H (0.0-1.0) mg/dL AST 24 (5-31) U/L ALT 8 (0-31) U/L Alkaline Phosphatase 93 (39-117) U/L Albumin 4.3 (3.5-5.0) g/dL Urine 03/07/25 Range/Units 15:52 Urine Color Yellow Urine Appearance Clear Urine pH 8.5 (5.0-9.0) Ur Specific [place] 1.010 (1.005-1.025) Urine Protein Negative (Neg-Trace) mg/dL Urine Glucose (UA) Negative (Negative) mg/dL Assessment and Plan (1) Vertigo: Status: Acute Probably acute vestibular neuronitis which appears to have resolved. I am not convinced this is a vascular process. I looked at the CTA and I do not see in the severe left vertebral distal stenosis that is reported even looking at multiple planes of the left vertebral artery. MRI is pending. If the MRIs negative she can be discharged on meclizine p.r.n.. Continue her blood pressure and cholesterol medicines Procedures Date of Service Date of Service: 03/08/25
--- NOTE | 2025-03-08 15:02 | PHA.MEDREC ---
Addendum entered by Reed Urias RPh 03/08/25 15:09: MED REC REVIEWED BY [facility] Original Note: Pharmacy Consult ? Medication Reconciliation Pharmacy has completed the medication reconciliation. Confirmed medication list with patient and family members at bedside. Patient takes Simvastatin 20 mg PO in morning at home with other medications to improve adherence. Patient took all medications last on .
[2025-03-08 16:00] VITALS: BP 138/42; PULSE 68; PULSE 70; RESP 16; RESP 18; TEMP 36.3; TEMP 36.4
[2025-03-08 20:00] VITALS: BP 135/61; PULSE 73; RESP 17; TEMP 36.6; O2SAT 95
[2025-03-09] VITALS: BP 129/60; PULSE 76; RESP 16; TEMP 36.9; O2SAT 97
[2025-03-09 03:45] VITALS: BP 141/60; PULSE 66; RESP 17; TEMP 36.3; O2SAT 97
[2025-03-09] MEDS: 0.9 % Sodium Chloride Flush 3 ML SYRINGE IVFLUSH (07:38)
[2025-03-09 07:58] VITALS: BP 145/74; PULSE 63; RESP 18; TEMP 36.7; O2SAT 98
--- NOTE | 2025-03-09 11:00 | PM.DS ---
DS: Providers Provider Date of Service: 03/09/25 Date of admission: 03/07/25 23:15 Date of discharge: 03/09/25 Primary care physician: Cady Orr MD Consults: 03/08/25 01:21 Consult to Neurology Routine Consulting Provider: [facility] Reason for consultation: Severe left vertebral artery stenosis Has provider been notified: No 03/08/25 09:55 Consult to Wound Care Routine Reason for consultation: bruise to lt upper arm , abrasion to lt elbow DS: Diagnosis Discharge Diagnosis (1) Stenosis of left vertebral artery: Status: Acute (2) Vertigo: Status: Acute DS: Summary Hospital Course Hospital Course: admission hpi Chief Complaint: dizziness Patient is an 89-year-old female with past medical history severe hearing loss, hypertension, vitamin-D deficiency, anxiety, GERD, dyslipidemia, depression presents to the emergency department initially with complaints of abdominal pain associated with nausea vomiting and persistent dizziness. Patient was monitored closely in the ED and as vomiting resolved, the abdominal pain and nausea and vomiting relinquished but patient continued to have dizziness. Patient was sent for a CTA of the head and neck and was found to have severe left vertebral artery stenosis. Head CT was negative for any acute findings. Abdominal CT also negative for any acute findings. Request for admission for neurological consultation and MRI in the a.m. For all her symptoms have resolved including her dizziness. Patient's was resting comfortably. Patient is very hard of hearing. Review of past medical history and past surgical history with minimal findings. Patient states it is a 1st time she has been in the hospital requiring hospitalization beyond having children. Patient denies history of smoking, alcohol use or diabetes. hospital course Patient presented with dizziness, vertigo type and found to have. CT head no acute CVA, CTA of the head reported by radiology as Severe distal left vertebral stenosis MRI done no acute finding. Patient seen by Neurology and reviewed CTA with the following remarkas Probably acute vestibular neuronitis which appears to have resolved. I am not convinced this is a vascular process. I looked at the CTA and I do not see in the severe left vertebral distal stenosis that is reported even looking at multiple planes of the left vertebral artery. MRI is pending. If the MRIs negative she can be discharged on meclizine p.r.n.. Continue her blood pressure and cholesterol medicines Her symptoms at this point have resolved. MRI of the head show no acute finding. Patient also reported some abdominal pain on presentation, this has resolved and CT show no acute finding and tolerating regular diet. Final diagnosis: Acute vestibular neuronitis Vertigo Abdominal pain Time Attestation Discharge Coordination Time (in mins): 45 Quality: Safe Use of Opioids Does Pt have an Active Cancer Diagnosis on the Problem List?: No Quality: Stroke Does the patient have a stroke diagnosis?: No Physical Exam Exam: Exam: General: AO X 3, no acute distress Resp: CTA bilateral CVS: S1,S2,RRR GI: +BS, NT, no distention Skin: No rash Neuro: motor grossly intact Psych: appropriate affect Vital Signs: Vital Signs: Last Vital Signs Temp 98.1 F 03/09/25 07:58 Pulse 63 03/09/25 07:58 Resp 18 03/09/25 07:58 BP 145/74 H 03/09/25 07:58 Pulse Ox 98 03/09/25 07:58 O2 Del Method Room Air 03/09/25 07:58 BMI result Body Mass Index 23.2 Discharge Plan Discharge Anticipated Discharge Date/Time: 03/09/25 10:48 Patient Disposition: Home, Self-Care Discharge Diagnosis: Vertigo due to vestibular neuronitis Referrals: Cady Orr MD [Primary Care Provider, Internal Medicine] - 1 Week Discharge Medications: New meclizine 12.5 mg tablet 12.5 mg PO TID PRN (Reason: dizziness or vertigo) Qty: 30 0RF Continued lisinopril 5 mg tablet 5 mg PO DAILY Qty: 90 3RF escitalopram oxalate 10 mg tablet 10 mg PO DAILY Qty: 90 3RF pantoprazole 40 mg tablet,delayed release (DR/EC) 40 mg PO DAILY Qty: 90 3RF simvastatin 20 mg tablet 20 mg PO BEDTIME Qty: 90 3RF Rx Instructions: Patient takes with rest of medications in the morning to improve medication adherence at home. multivitamin Tablet 1 tab PO DAILY cholecalciferol (vitamin D3) 25 mcg (1,000 unit) tablet 25 mcg PO DAILY Qty: 90 3RF Discharge Orders: Discharge Order (Routine); Ordered 03/09/25 Ordered By: Anibal Mcgraw Diet: Advance to usual diet Activity on Discharge: As tolerated Stand Alone Forms: Patient Portal Discharge page Print Language: Uzbek Care Plan Goals: recovery from Vertigo Health Concerns: Vertigo dut vestibular neuronitis Plan of Treatment: take meclizine as needed and follow up with your doctor in a week, call for appointment, if symptoms persistes, you may need to be seen by an ENT doctor Assessment: see above Patient Instructions: Acute Nausea and Vomiting (DC)
--- NOTE | 2025-03-09 11:20 | MHC.CM.PN ---
Patient has been medically cleared for dc to home today, self care.
[2025-03-09 12:00] VITALS: BP 131/63; PULSE 81; RESP 18; TEMP 36.4; O2SAT 97
== END 2025-03-09 12:43 | disposition home or self-care (01) | DRG 149 ==
LOC: HO.ED 20:22 → HO.EDOVER 23:19 → HO.IMC 03-08 08:06
PROVIDERS: Nurse Practitioner Family; Registered Nurse Emergency; Admitting Provider Internal Medicine; Emergency Provider Emergency Medicine; PCP Internal Medicine; Visit Provider Internal Medicine
DX: H81.20 Vestibular neuronitis, unspecified ear (principal); R94.31 Abnormal electrocardiogram [ECG] [EKG]; K21.9 Gastro-esophageal reflux disease without esophagitis; F41.9 Anxiety disorder, unspecified; I10 Essential (primary) hypertension; F32.A Depression, unspecified; E78.5 Hyperlipidemia, unspecified; Z20.822 Contact with and (suspected) exposure to COVID-19; Z79.899 Other long term (current) drug therapy
CPT/HCPCS: 36415; 70450; 70496; 70498; 70551; 74177; 80048; 80053; 80061; 81003; 83735; 84484; 85025; 85610; 87502; 87635; 93005; 99285; J0131; J1650; J2250; J2405; J3475; Q9967

== ENCOUNTER → 2025-03-07 13:14 | Outpatient (BNV) | payer MEDICARE, OTHER, SELFPAY | PROVIDERS: Admitting Provider Internal Medicine; Emergency Provider Emergency Medicine; PCP Internal Medicine; Visit Provider Internal Medicine | DX: R00.1 Bradycardia, unspecified (principal); I45.81 Long QT syndrome | CPT/HCPCS: 93010 ==

== ENCOUNTER → 2025-03-07 13:28 | Outpatient (BNV) | payer MEDICARE, OTHER, SELFPAY | PROVIDERS: Emergency Provider Emergency Medicine; PCP Internal Medicine; Visit Provider Radiology Diagnostic Radiology | DX: R51.9 Headache, unspecified (principal); R11.10 Vomiting, unspecified; I10 Essential (primary) hypertension | CPT/HCPCS: 70450 ==

== ENCOUNTER 2025-03-07 23:15 | Outpatient (BNV) | payer MEDICARE, OTHER, SELFPAY | END 2025-03-08 08:00 | PROVIDERS: Admitting Provider Internal Medicine; Emergency Provider Emergency Medicine; PCP Internal Medicine; Visit Provider Internal Medicine | DX: R94.31 Abnormal electrocardiogram [ECG] [EKG] (principal) | CPT/HCPCS: 93010 ==

== ENCOUNTER → 2025-03-07 23:15 | Outpatient (BNV) | payer MEDICARE, OTHER, SELFPAY | PROVIDERS: Admitting Provider Internal Medicine; Emergency Provider Emergency Medicine; PCP Internal Medicine; Visit Provider Nurse Practitioner Family | DX: I65.02 Occlusion and stenosis of left vertebral artery (principal); R42 Dizziness and giddiness | CPT/HCPCS: 99499 ==

== ENCOUNTER → 2025-03-07 23:15 | Outpatient (BNV) | payer MEDICARE, OTHER, SELFPAY | PROVIDERS: Admitting Provider Internal Medicine; Emergency Provider Emergency Medicine; PCP Internal Medicine; Visit Provider Psychiatry & Neurology Neurology | DX: R42 Dizziness and giddiness (principal) | CPT/HCPCS: 99223 ==

== ENCOUNTER 2025-03-12 11:51 | Outpatient (AMB) | payer MEDICARE, OTHER, SELFPAY ==
[2025-03-12 11:58] VITALS: BP 126/72; PULSE 71; RESP 18; TEMP 36.7; O2SAT 96; BMI 23.8
--- NOTE | 2025-03-12 11:58 | MHC.PC.OV ---
Vital Signs 03/12/25 11:58 Height 5 ft 1 in Weight 126 lb BMI 23.8 BP 126/72 Blood Pressure Location Lt brachial Position Sitting Respiration 18 Pulse 71 Pulse Source Pulse Oximeter Temp 98.0 F Temp Source Oral Pulse Oximetry (%) 96 Oxygen Delivery Method Room Air Intake Visit Reasons: TCM Intake Note: Pt is here today for TCM. Allergies omeprazole (Prilosec) Allergy (Unknown, Verified 03/12/25 12:01) hives Medication List - Last Reconciled 03/12/25 by Cady rOr MD cholecalciferol (vitamin D3) 25 mcg PO DAILY escitalopram oxalate 10 mg PO DAILY lisinopril 5 mg PO DAILY meclizine 12.5 mg PO TID PRN multivitamin 1 tab PO DAILY pantoprazole 40 mg PO DAILY simvastatin 20 mg PO BEDTIME Tobacco use date assessed: 03/12/25 Fall risk assessment: 1 Fall in past year Last assessed Fall Risk: 03/12/25 Dental Screening Dental Screen Date: 10/21/24 HPI TCM HPI Details Pt presents for TCM at [facility] 03/07-03/09 for acute vertigo and fall in the shower. She had no loss of consciousness. The neuro workup was consistent with normal CT and of the brain but CT angiogram showed severe left vertebral artery stenosis. Patient was seen by Neurology and was diagnosed with vestibular neuritis. Her symptoms resolved. Patient denies any difficulty walking dizziness or lightheadedness. TCM TCM Information Date of Discharge 03/09/25 Discharged From [facility] Interactive Contact Date (Reference documentation from this date) 03/10/25 [facility] Medical History (Updated 03/12/25 @ 12:46 by Cady Orr MD) Vertigo Vitamin D deficiency Heart murmur Hearing loss Anxiety disorder GERD (gastroesophageal reflux disease) Dyslipidemia Essential hypertension Arm pain Shoulder pain, right Hx of fall Surgical History No pertinent past surgical history Family History Father Pancreatic cancer Mother Hypertension Social History Household Members: Family Household Members Other:: lives with son, Housing: House Do you presently have visiting nurse or other home services: Yes (meals on wheels) Alcohol intake: current Alcohol intake frequency: a few times a month Patient Tobacco Use Status: Never used Tobacco e-Cigarette/Vaping Use: Never Used service: No Current occupational status: retired Cognitive needs: No Hearing needs: Yes Vision needs: Yes Questionnaire PHQ-9 Over the last 2 weeks, how often have you been bothered by any of the following problems? 1. Little interest or pleasure in doing things: not at all 2. Feeling down, depressed, or hopeless: not at all 3. Trouble falling or staying asleep, or sleeping too much: not at all 4. Feeling tired or having little energy: several days 5. Poor appetite or overeating: several days 6. Feeling bad about yourself - or that you are a failure or have let yourself or your family down: not at all 7. Trouble concentrating on things, such as reading the newspaper or watching television: several days 8. Moving or speaking so slowly that other people could have noticed. Or the opposite - being so fidgety or restless that you have been moving around a lot more than usual: several days 9. Thoughts that you would be better off or of hurting yourself in some way: not at all Total score: 4 Depression Screening Interpretation: Negative Depression Screening Done: Yes Source: Developed by Drs. Howard Barnard, Grace Becker, Jimmie Schuster and colleagues, with an educational enoc from [employer]. Thrive Questionnaire Date Thrive assessed: 10/21/24 I am a: Patient What is your living situation today?: I have a steady place to live Within the past 12 months, did the food you bought not last and you didn't have the money to get more?: Never true Within the past 12 months, did you worry whether your food would run out before you got money to buy more?: Never true Do you have trouble paying for medicines?: No Do you have trouble getting transportation to medical appointments?: No Do you have trouble paying your heating and electricity bill?: No Do you have trouble taking care of your child, family member or friend?: No Do you have trouble with day-to-day activities such as bathing, preparing meals, shopping, managing finances, etc.?: No Are you currently unemployed and looking for a job?: No Are you interested in more education?: No Please select the resources that you would like help with: None Currently or been in a relationship where the following occur: No concerns reported THRIVE Score: 0 JULI-7 AMB Questionnaire JULI-7 Date JULI - 7 assessed: 10/21/24 Feeling nervous, anxious, or on edge: 0 = Not at all Not being able to stop or control worryin = Not at all Worrying too much about different things: 0 = Not at all Trouble relaxin = Not at all Being so restless that it is hard to sit still: 0 = Not at all Becoming easily annoyed or irritable: 0 = Not at all Feeling afraid as if something awful might happen: 0 = Not at all Total JULI-7 score (0-4 normal; 5-9 mild; 10-14 moderate; 15-21 severe): 0 Source: Developed by Drs. Howard Barnard, Grace Becker, Jimmie Schuster and colleagues, with an educational enoc from [employer]. Review of Systems Const All systems reviewed & are unremarkable except as noted in HPI and below Eyes Reports no additional complaints ENT Reports no additional complaints Card Reports no additional complaints Resp Reports no additional complaints GI Reports no additional complaints Reports no additional complaints Physical exam (Primary Care) Vital Signs: Last Vital Signs Temp 98.0 F 03/12/25 11:58 Pulse 71 03/12/25 11:58 Resp 18 03/12/25 11:58 BP 126/72 03/12/25 11:58 Pulse Ox 96 03/12/25 11:58 Oxygen Delivery Method Room Air 03/12/25 11:58 BMI result Body Mass Index 23.8 Tobacco/Smoking Status: Tobacco use Status Tobacco use date assessed 03/12/25 03/12/25 12:04 Patient Tobacco Use Status Never used Tobacco 03/12/25 11:58 e-Cigarette/Vaping Use Never Used 03/12/25 11:58 PHQ-9: PHQ-9 Score PHQ-9: Total score 4 03/12/25 12:06 Depression Screening Interpretation: Negative Thrive Assessment: Date of Thrive Assessment Date Thrive assessed 10/21/24 03/12/25 11:58 Currently or been in a relationship where the following occur: No concerns reported Const General: no acute distress HENMT Head: Yes normal to inspection Face and sinus: Yes normal facial exam Eyes General: appearance normal, both eyes and all related structures Neck Neck: Yes no lymphadenopathy and Yes supple Resp Effort & Inspection: normal respiratory effort Auscultation: clear to auscultation bilaterally Cardio Rhythm: regular rhythm Heart sounds: S1 normal heart sound present and S2 normal heart sound present GI Inspection: Yes normal to inspection Palpation (GI): Soft to palpation Percussion: Yes normal to percussion Auscultation: normal bowel sounds Neuro Cranial nerves: Yes CN's II-XII intact bilaterally Motor exam (neuro): 5/5 motor strength present throughout Romberg Test: Negative Coding Level of Care Code TCM Mod MDM <= 7 Days Diagnoses Essential hypertension I10 Dyslipidemia E78.5 Vitamin D deficiency E55.9 Assessment & Plan Assessment & Plan (1) Essential hypertension: Code(s): I10 - Essential (primary) hypertension Category: Medical Plan: Continue lisinopril (2) Dyslipidemia: Code(s): E78.5 - Hyperlipidemia, unspecified Category: Medical Plan: Continue statin (3) Vitamin D deficiency: Code(s): E55.9 - Vitamin D deficiency, unspecified Category: Medical Plan: Continue vitamin D Orders: Orders Comprehensive [place]. Panel Fast 6 Weeks E55.9 - Vitamin D deficiency, unspecified, I10 - Essential (primary) hypertension Complete Blood Count Auto Diff 6 Weeks E55.9 - Vitamin D deficiency, unspecified, E78.5 - Hyperlipidemia, unspecified, I10 - Essential (primary) hypertension, R42 - Dizziness and giddiness Vitamin D 25-OH Total 6 Weeks E55.9 - Vitamin D deficiency, unspecified, E78.5 - Hyperlipidemia, unspecified, I10 - Essential (primary) hypertension, R42 - Dizziness and giddiness TSH reflex Free T4 6 Weeks E55.9 - Vitamin D deficiency, unspecified, E78.5 - Hyperlipidemia, unspecified, I10 - Essential (primary) hypertension, R42 - Dizziness and giddiness Lipid Panel 6 Weeks E55.9 - Vitamin D deficiency, unspecified, E78.5 - Hyperlipidemia, unspecified, I10 - Essential (primary) hypertension, R42 - Dizziness and giddiness
== END 2025-03-12 12:51 | disposition home or self-care (01) ==
LOC: HO.HMCC 11:52
PROVIDERS: PCP Internal Medicine; Visit Provider Internal Medicine
DX: I10 Essential (primary) hypertension (principal); E78.5 Hyperlipidemia, unspecified; E55.9 Vitamin D deficiency, unspecified

== ENCOUNTER → 2025-03-12 11:51 | Outpatient (BNVA) | payer MEDICARE, OTHER, SELFPAY | PROVIDERS: PCP Internal Medicine; Visit Provider Internal Medicine | DX: I10 Essential (primary) hypertension (principal); R42 Dizziness and giddiness; E78.5 Hyperlipidemia, unspecified; E55.9 Vitamin D deficiency, unspecified; Z91.81 History of falling | CPT/HCPCS: 96127; 99495 ==

== ENCOUNTER 2025-04-14 08:14 | Outpatient (AMB) | payer MEDICARE, OTHER, SELFPAY ==
[2025-04-14 08:19] VITALS: BP 128/62; PULSE 91; TEMP 36.7; O2SAT 98; BMI 24.0
--- NOTE | 2025-04-14 08:19 | AM.OFFWIN_ITS ---
Intake Vital Signs 04/14/25 08:19 Height 5 ft 1 in Weight 127 lb BMI 24.0 BP 128/62 Blood Pressure Location Rt brachial Position Sitting Pulse 91 Pulse Source Pulse Oximeter Temp 98.1 F Temp Source Oral Pulse Oximetry (%) 98 Oxygen Delivery Method Room Air Intake Visit Reasons: ep fell at home left arm swollen and bruised Intake Note: Patient presents with c/o constant achy pain, bruising & swelling in left forearm related to a fall at home on Monday. Patient Tobacco Use Status: Never used Tobacco Allergies omeprazole (Prilosec) Allergy (Unknown, Verified 04/14/25 08:23) hives Do you need a note to return to daycare/school/sports/work: No HPI HPI Comments History of Present Illness Details 89 y/o Female patient who presents to [facility] walk in clinic with c/o constant achy pain, bruising & swelling in left forearm related to a fall at home on Monday. Reports that the swelling is getting better now - she has been using NSAIDs with minimal relief. [facility] Medical History (Updated 04/14/25 @ 08:53 by Tiara Morales NP) Wrist pain, left Vertigo Vitamin D deficiency Heart murmur Hearing loss Anxiety disorder GERD (gastroesophageal reflux disease) Dyslipidemia Essential hypertension Arm pain Shoulder pain, right Hx of fall Surgical History No pertinent past surgical history Family History Father Pancreatic cancer Mother Hypertension Social History Household Members: Family Household Members Other:: lives with son, Housing: House Do you presently have visiting nurse or other home services: Yes (meals on wheels) Alcohol intake: current Alcohol intake frequency: a few times a month Patient Tobacco Use Status: Never used Tobacco e-Cigarette/Vaping Use: Never Used service: No Current occupational status: retired Cognitive needs: No Hearing needs: Yes Vision needs: Yes Review of Systems Const All systems reviewed & are unremarkable except as noted in HPI and below Physical Exam Vital Signs: Last Vital Signs Temp 98.1 F 04/14/25 08:19 Pulse 91 04/14/25 08:19 BP 128/62 04/14/25 08:19 Pulse Ox 98 04/14/25 08:19 Oxygen Delivery Method Room Air 04/14/25 08:19 BMI result Body Mass Index 24.0 Const General: no acute distress Nutritional Appearance: well nourished Orientation/consciousness: patient oriented x3 Neuro General: patient oriented x3, gait normal and moves all extremities Motor exam (neuro): 5/5 motor strength present throughout Extrem Left upper extremity: hand Details: normal capillary refill, tenderness Location: of the dorsal hand, normal ROM of fingers, swelling (Mild swelling) Location: of the dorsal hand, ecchymosis Location: of the dorsal hand and other (ROM Limited due to pain.); no crepitus Psych Speech and movement: Normal speech and movement present Assessment & Plan Assessment & Plan (1) Wrist pain, left: Code(s): M25.532 - Pain in left wrist Plan: Ordered Xray Wrist/Hand Wrapped Hand with Jose Bandage. Ice/Heat Rest joint. NSAIDs and Acetaminophen for pain relief. Coding Level of Care Code Est Pt Level 4 (84276) Diagnoses Wrist pain, left M25.532 Time Spent (min) 20
== END 2025-04-14 09:01 | disposition home or self-care (01) ==
PROVIDERS: PCP Internal Medicine; Visit Provider Nurse Practitioner Family
DX: M25.532 Pain in left wrist (principal)

== ENCOUNTER 2025-04-14 08:14 | Outpatient (REF) | payer MEDICARE, OTHER, SELFPAY ==
--- NOTE | ~2025-04-14 | XR_ITS ---
EXAMINATION: XR HAND 3 OR MORE VIEWS LEFT HISTORY: M25.532 - Pain in left wrist COMPARISON: There are no prior studies available for comparison. FINDINGS: Three views of the left hand are submitted. The bones are osteopenic. There is a nondisplaced transverse fracture of the distal radial metaphysis. No additional fracture is seen. There is no dislocation. 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 Moderate osteoarthritis is seen involving the 5th PIP joint. The soft tissues are unremarkable. XR/XR hand LT min 3V IMPRESSION: Osteopenia. Nondisplaced transverse fracture of the distal radial metaphysis. Electronically signed by: Howard Giang MD 04/14/2025 09:16 AM EDT
== END 2025-04-14 08:15 | disposition home or self-care (01) ==
LOC: HO.HMGCX 08:14
PROVIDERS: PCP Internal Medicine; Visit Provider Nurse Practitioner Family
DX: M25.532 Pain in left wrist (principal)
CPT/HCPCS: 73130; 99212

== ENCOUNTER → 2025-04-14 08:57 | Outpatient (BNV) | payer MEDICARE, OTHER, SELFPAY | PROVIDERS: PCP Internal Medicine; Visit Provider Radiology Diagnostic Radiology | DX: M25.532 Pain in left wrist (principal) | CPT/HCPCS: 73130 ==

== ENCOUNTER 2025-04-23 07:45 | Outpatient (REF) | payer MEDICARE, OTHER, SELFPAY ==
[2025-04-23 10:31] LABS: MANUAL DIFF FLAG NO
[2025-04-23 10:50] LABS: Hematocrit 35.2 % (37.0-47.0); Hemoglobin 11.6 g/dl (12.0-16.0); Imm Gran Abs Auto 0.02 X10*3/uL (0.00-0.03); Imm Gran Pct Auto 0.3 % (0.0-0.4); Lymphocytes Absolute Auto 1.8 X10*3/uL (1.2-4.9); Mean Corpuscular HGB Conc 33.0 g/dl (31.0-35.0); Mean Corpuscular Hemoglobin 30.8 pg (27.0-33.0); Mean Corpuscular Volume 93.4 fL (80.0-98.0); NRBC Abs Auto 0.000 X10*3/uL (0.0-0.012); NRBC Pct Auto 0.0 /100WBC (0.0-0.2); Platelet Count 234 X10*3/uL (160-400); Red Blood Count 3.77 X10*6/uL (4.20-5.50); White Blood Count 6.3 X10*3/uL (4.8-10.8)
[2025-04-23 11:24] LABS: Alanine Aminotransferase 11 U/L (0-31); Albumin Level 4.3 g/dL (3.5-5.0); Alkaline Phosphatase 115 U/L (39-117); Anion Gap 10 (12-20); Aspartate Amino Transferase 24 U/L (5-31); Blood Urea Nitrogen 21 mg/dL (9-16); Calcium 9.4 mg/dL (8.4-10.2); Carbon Dioxide 29 mmol/L (22-29); Chloride 108 mmol/L (96-108); Cholesterol 178 mg/dL (<200); Estimated Glomerular Filt Rate 54; HDL Cholesterol 48 mg/dL (>40); Potassium 4.9 mmol/L (3.3-5.1); Sodium 142 mmol/L (135-145); Total Protein 7.2 g/dL (6.5-8.0); Triglycerides 105 mg/dL (<150)
== END 2025-04-23 07:46 | disposition home or self-care (01) ==
LOC: HO.HMGCLDS 07:45
PROVIDERS: PCP Internal Medicine; Visit Provider Internal Medicine
DX: I10 Essential (primary) hypertension (principal); R42 Dizziness and giddiness; E55.9 Vitamin D deficiency, unspecified; E78.5 Hyperlipidemia, unspecified
CPT/HCPCS: 36415; 80053; 80061; 82306; 84443; 85025

== ENCOUNTER 2025-05-01 12:16 | Outpatient (AMB) | payer MEDICARE, OTHER, SELFPAY ==
[2025-05-01 12:28] VITALS: BP 142/72; PULSE 72; RESP 16; TEMP 36.8; O2SAT 98; BMI 23.8
--- NOTE | 2025-05-01 12:28 | MHC.PC.OV ---
Vital Signs 05/01/25 12:28 Height 5 ft 1 in Weight 126 lb BMI 23.8 BP 142/72 H Blood Pressure Location Rt brachial Position Sitting Respiration 16 Pulse 72 Pulse Source Pulse Oximeter Temp 98.2 F Temp Source Oral Pulse Oximetry (%) 98 Oxygen Delivery Method Room Air Intake Visit Reasons: [facility] G0439 Allergies omeprazole (Prilosec) Allergy (Unknown, Verified 04/14/25 08:23) hives Medication List - Last Reconciled 05/01/25 by Cady Orr MD cholecalciferol (vitamin D3) 25 mcg PO DAILY escitalopram oxalate 10 mg PO DAILY lisinopril 5 mg PO DAILY meclizine 12.5 mg PO TID PRN multivitamin 1 tab PO DAILY pantoprazole 40 mg PO DAILY simvastatin 20 mg PO BEDTIME Tobacco use date assessed: 03/12/25 Dental Screening Dental Screen Date: 10/21/24 HPI [facility] G0439 HPI Details Initiated the conversation about Advanced Directives. Advanced Directives help? patients prepare for current and future decisions about their medical treatment? and place of care. Discussed with patient that it is a process where a patients? current condition and prognosis are reviewed, their wishes for information? regarding their illness are elicited, and likely medical dilemmas are presented? and options discussed. The form can be amended as needed, reviewed yearly and? make changes as needed IPPE/AWV ? year old presents? for her ? Annual? Wellness Visit, initial visit.? Medical / Social History Reviewed? Past Medical History ?Yes? . ? [place]? of Care / Care Team list updated ?Yes . ? Surgical/Hospitalization? History ?Yes . ? Current Medications? (including OTC and supplements) ?Yes . ? Family History ?Yes? . ? Tobacco? Control form ?Yes . ? AUDIT-C (Alcohol use) form? ?Yes . ? Illicit drug use in Social? History ?Yes . ? Current diagnosis of? depression? ?No ? Appropriate PHQ2/PHQ9? completed ?Yes . ? Data entered by ?Medical? Sports Physician and reviewed by provider ? Fall Risk ? Fall? History? Have you had any falls with? injury in the past year? ?No . ? Have you had two or more? falls in the past year? ?No . ? Fall Risk Assessment: ?No? falls in the past year . ? HRA filled out by? the patient, reviewed by Provider and scanned. ? IPPE/AWV ? Balance? Romberg? ?Yes . ? Tandem? walk ?Yes . ? Walk and? Turn ?Yes . ? Rise from? sit to stand ?Yes . ?Vision? Corrective? lens ?Yes ? Vision? screen ? Up-to-date, has an appointment [] for vision? screening and glaucoma screening ?Hearing? Whisper? test ?pass .? Initiated the conversation about Advanced Directives. Advanced Directives help? patients prepare for current and future decisions about their medical treatment? and place of care. Discussed with patient that it is a process where a patients? current condition and prognosis are reviewed, their wishes for information? regarding their illness are elicited, and likely medical dilemmas are presented? and options discussed. The form can be amended as needed, reviewed yearly and? make changes as needed Written? Plan?Completed. See Patient? Documents. [facility] Medical History (Updated 05/01/25 @ 13:16 by Cady Orr MD) Distal radial fracture Wrist pain, left Vertigo Vitamin D deficiency Heart murmur Hearing loss Anxiety disorder GERD (gastroesophageal reflux disease) Dyslipidemia Essential hypertension Arm pain Shoulder pain, right Hx of fall Surgical History No pertinent past surgical history Family History Father Pancreatic cancer Mother Hypertension Social History Household Members: Family Household Members Other:: lives with son, Housing: House Do you presently have visiting nurse or other home services: Yes (meals on wheels) Alcohol intake: current Alcohol intake frequency: a few times a month Patient Tobacco Use Status: Never used Tobacco e-Cigarette/Vaping Use: Never Used service: No Current occupational status: retired Cognitive needs: No Hearing needs: Yes Vision needs: Yes Questionnaire Thrive Questionnaire Date Thrive assessed: 10/21/24 I am a: Patient What is your living situation today?: I have a steady place to live Within the past 12 months, did the food you bought not last and you didn't have the money to get more?: Never true Within the past 12 months, did you worry whether your food would run out before you got money to buy more?: Never true Do you have trouble paying for medicines?: No Do you have trouble getting transportation to medical appointments?: No Do you have trouble paying your heating and electricity bill?: No Do you have trouble taking care of your child, family member or friend?: No Do you have trouble with day-to-day activities such as bathing, preparing meals, shopping, managing finances, etc.?: No Are you currently unemployed and looking for a job?: No Are you interested in more education?: No Please select the resources that you would like help with: None Currently or been in a relationship where the following occur: No concerns reported THRIVE Score: 0 JULI-7 AMB Questionnaire JULI-7 Date JULI - 7 assessed: 10/21/24 Source: Developed by Drs. Howard Barnard, Grace Becker, Jimmie Schuster and colleagues, with an educational enoc from [employer]. Review of Systems Const All systems reviewed & are unremarkable except as noted in HPI and below Eyes Reports no additional complaints ENT Reports no additional complaints Card Reports no additional complaints Resp Reports no additional complaints GI Reports no additional complaints Reports no additional complaints Physical exam (Primary Care) Vital Signs: Last Vital Signs Temp 98.2 F 05/01/25 12:28 Pulse 72 05/01/25 12:28 Resp 16 05/01/25 12:28 BP 142/72 H 05/01/25 12:28 Pulse Ox 98 05/01/25 12:28 Oxygen Delivery Method Room Air 05/01/25 12:28 BMI result Body Mass Index 23.8 Tobacco/Smoking Status: Tobacco use Status Tobacco use date assessed 03/12/25 05/01/25 12:29 Patient Tobacco Use Status Never used Tobacco 05/01/25 12:29 e-Cigarette/Vaping Use Never Used 05/01/25 12:29 Thrive Assessment: Date of Thrive Assessment Date Thrive assessed 10/21/24 05/01/25 12:29 Currently or been in a relationship where the following occur: No concerns reported Const General: no acute distress HENMT Head: Yes normal to inspection Ears: hearing grossly normal bilaterally General nose exam: Normal external nose present Throat: Yes posterior oropharynx normal Eyes General: appearance normal, both eyes and all related structures Neck Neck: Yes no lymphadenopathy and Yes supple Resp Effort & Inspection: normal respiratory effort Auscultation: clear to auscultation bilaterally Cardio Rhythm: regular rhythm Heart sounds: S1 normal heart sound present and S2 normal heart sound present GI Inspection: Yes normal to inspection Palpation (GI): Soft to palpation Percussion: Yes normal to percussion Auscultation: normal bowel sounds Coding Diagnoses Distal radial fracture S52.509A Postmenopausal Z78.0 Anxiety disorder F41.9 Essential hypertension I10 Dyslipidemia E78.5 Assessment & Plan Assessment & Plan (1) Distal radial fracture: Comment: left nondisplaced 04/14/2025 given a wrist brace at Walk in Code(s): S52.509A - Unspecified fracture of the lower end of unspecified radius, initial encounter for closed fracture Category: Medical Plan: Refer to hand surgeon (2) Postmenopausal: Code(s): Z78.0 - Asymptomatic menopausal state Category: Medical Plan: Check DEXA, continue vitamin-D supplement (3) Anxiety disorder: Comment: Stable on Lexapro Code(s): F41.9 - Anxiety disorder, unspecified Category: Medical Plan: Continue Lexapro (4) Essential hypertension: Code(s): I10 - Essential (primary) hypertension Category: Medical Plan: Continue lisinopril (5) Dyslipidemia: Code(s): E78.5 - Hyperlipidemia, unspecified Category: Medical Plan: Continue statin, pt will follow-up in 6 months with a fasting labs before Orders: Orders XR DEXA axial skeleton Today Z78.0 - Asymptomatic menopausal state Referrals Hand Surgery Referral S52.509A - Unspecified fracture of the lower end of unspecified radius, initial encounter for closed fracture
--- NOTE | 2025-05-01 13:20 | AM.OFFVISMDC ---
Intake Vital Signs 05/01/25 12:28 Height 5 ft 1 in Weight 126 lb BMI 23.8 BP 142/72 H Blood Pressure Location Rt brachial Position Sitting Respiration 16 Pulse 72 Pulse Source Pulse Oximeter Temp 98.2 F Temp Source Oral Pulse Oximetry (%) 98 Oxygen Delivery Method Room Air Intake Visit Reasons: [facility] G0439 Allergies omeprazole (Prilosec) Allergy (Unknown, Verified 04/14/25 08:23) hives Medication List - Last Reconciled 05/01/25 by Cady Orr MD cholecalciferol (vitamin D3) 25 mcg PO DAILY escitalopram oxalate 10 mg PO DAILY lisinopril 5 mg PO DAILY meclizine 12.5 mg PO TID PRN multivitamin 1 tab PO DAILY pantoprazole 40 mg PO DAILY simvastatin 20 mg PO BEDTIME HPI [facility] G0439 HPI Details Initiated the conversation about Advanced Directives. Advanced Directives help? patients prepare for current and future decisions about their medical treatment? and place of care. Discussed with patient that it is a process where a patients? current condition and prognosis are reviewed, their wishes for information? regarding their illness are elicited, and likely medical dilemmas are presented? and options discussed. The form can be amended as needed, reviewed yearly and? make changes as needed IPPE/AWV ? year old presents? for her ? Annual? Wellness Visit, initial visit.? Medical / Social History Reviewed? Past Medical History ?Yes? . ? [place]? of Care / Care Team list updated ?Yes . ? Surgical/Hospitalization? History ?Yes . ? Current Medications? (including OTC and supplements) ?Yes . ? Family History ?Yes? . ? Tobacco? Control form ?Yes . ? AUDIT-C (Alcohol use) form? ?Yes . ? Illicit drug use in Social? History ?Yes . ? Current diagnosis of? depression? ?No ? Appropriate PHQ2/PHQ9? completed ?Yes . ? Data entered by ?Medical? Metal Container Maker and reviewed by provider ? Fall Risk ? Fall? History? Have you had any falls with? injury in the past year? ?No . ? Have you had two or more? falls in the past year? ?No . ? Fall Risk Assessment: ?No? falls in the past year . ? HRA filled out by? the patient, reviewed by Provider and scanned. ? IPPE/AWV ? Balance? Romberg? ?Yes . ? Tandem? walk ?Yes . ? Walk and? Turn ?Yes . ? Rise from? sit to stand ?Yes . ?Vision? Corrective? lens ?Yes ? Vision? screen ? Up-to-date, has an appointment [] for vision? screening and glaucoma screening ?Hearing? Whisper? test ?pass .? Initiated the conversation about Advanced Directives. Advanced Directives help? patients prepare for current and future decisions about their medical treatment? and place of care. Discussed with patient that it is a process where a patients? current condition and prognosis are reviewed, their wishes for information? regarding their illness are elicited, and likely medical dilemmas are presented? and options discussed. The form can be amended as needed, reviewed yearly and? make changes as needed Written? Plan?Completed. See Patient? Documents. [facility] Medical History (Updated 05/01/25 @ 13:16 by Cady Orr MD) Distal radial fracture Wrist pain, left Vertigo Vitamin D deficiency Heart murmur Hearing loss Anxiety disorder GERD (gastroesophageal reflux disease) Dyslipidemia Essential hypertension Arm pain Shoulder pain, right Hx of fall Surgical History No pertinent past surgical history Family History Father Pancreatic cancer Mother Hypertension Social History Household Members: Family Household Members Other:: lives with son, Housing: House Do you presently have visiting nurse or other home services: Yes (meals on wheels) Alcohol intake: current Alcohol intake frequency: a few times a month Patient Tobacco Use Status: Never used Tobacco e-Cigarette/Vaping Use: Never Used service: No Current occupational status: retired Cognitive needs: No Hearing needs: Yes Vision needs: Yes Questionnaire Medicare Wellness Checkup What is your age?: 80 or older What gender do you identify with?: female During the past 4 weeks, how much have you been bothered by emotional problems such as feeling anxious, depressed, irritable, sad or downhearted, and blue?: not at all During the past 4 weeks, has your physical & emotional health limited your social activities with family, friends, neighbors, or groups?: slightly During the past 4 weeks, how much bodily pain have you generally had?: mild pain During the past 4 weeks, was someone available to help you if you needed & wanted help?: yes, as much as I wanted During the past 4 weeks, what was the hardest physical activity you could do for at least 2 minutes?: light Can you get to places out of walking distance without help? (For eg., can you travel alone on buses, taxis or drive your car?): No Can you go shopping for groceries or clothes without someone's help?: No Can you prepare your own meals?: Yes Can you do your housework without help?: No Because of any health problems, do you need the help of another person with your personal care needs such as eating, bathing, dressing or getting around the house?: No Can you handle your own money without help?: Yes During the past 4 weeks, how would you rate your health in general?: good During the past 4 weeks how have things been going for you?: pretty well Are you having difficulties driving your car?: not applicable, I don't use a car Do you always fasten your seat belt when you are in a car?: yes, usually During past 4 weeks, have you been bothered by the following: never: Sexual problems?, Trouble eating well?, Teeth or denture problems?, Problems using the telephone? and Tiredness or fatigue? and seldom: Falling or dizzy when standing up Have you fallen 2 or more times in the past year?: No Are you afraid of falling?: No Are you a smoker?: no During the past 4 weeks, how many drinks of wine, beer, or other alcoholic beverages did you have?: no alcohol at all Do you exercise for about 20 minutes 3 or more times a week?: yes, some of the time Have you been given information to help with the following?: no: Hazards in your house that might hurt you? and no: Keeping track of your medications? How often do you have trouble taking medicines the way you have been told to take them?: I always take medicine as prescribed How confident are you that you can control & manage most of your health problems?: somewhat confident What is your race?: White Mini Mental State Exam (MMSE) Orientation What is the (year) (season) (date) (day) (month)?: year, season, date, day and month Where are we (state) (county) (town or city) (hospital) (floor)?: state, county, town or city, hospital/clinic and floor Registration Name of 3 unrelated objects clearly and slowly, then ask patient to repeat all 3 of them. (1st repeat determines score. Make sure they can repeat all three): object 1 and object 2 Attention & Calculation (CHOOSE ONE) Spell WORLD backwards (DLROW): 4 letters Recall Ask patient to repeat the 3 items from question #3.: object 1 and object 2 Language Show patient a wristwatch & ask what it is. Repeat for pencil.: watch and pencil Ask the patient to repeat the phrase 'No ifs, ands, or buts' after you.: correct Ask the patient to 'take a piece of paper with their right hand' 'fold paper in half' 'place paper on floor': take paper in right hand, fold paper in half and place paper on floor Print the sentence 'CLOSE YOUR EYES' on a piece. If patient actually closes eyes then score.: followed written direction Give patient a blank piece of paper & ask to write a sentence. Score if it contains a noun & verb.: sentence contains subject and verb Score Score: 26 PHQ-9 Over the last 2 weeks, how often have you been bothered by any of the following problems? 1. Little interest or pleasure in doing things: not at all 2. Feeling down, depressed, or hopeless: not at all 3. Trouble falling or staying asleep, or sleeping too much: several days 4. Feeling tired or having little energy: several days 5. Poor appetite or overeating: not at all 6. Feeling bad about yourself - or that you are a failure or have let yourself or your family down: not at all 7. Trouble concentrating on things, such as reading the newspaper or watching television: not at all 8. Moving or speaking so slowly that other people could have noticed. Or the opposite - being so fidgety or restless that you have been moving around a lot more than usual: not at all 9. Thoughts that you would be better off or of hurting yourself in some way: not at all Total score: 2 Depression Screening Interpretation: Negative Depression Screening Done: Yes Source: Developed by Drs. Howard Barnard, Grace Becker, Jimmie Schuster and colleagues, with an educational enoc from [employer]. Review of Systems Const All systems reviewed & are unremarkable except as noted in HPI and below Eyes Reports no additional complaints ENT Reports no additional complaints Card Reports no additional complaints Resp Reports no additional complaints GI Reports no additional complaints Reports no additional complaints Physical Exam Vital Signs: Last Vital Signs Temp 98.2 F 05/01/25 12:28 Pulse 72 05/01/25 12:28 Resp 16 05/01/25 12:28 BP 142/72 H 05/01/25 12:28 Pulse Ox 98 05/01/25 12:28 Oxygen Delivery Method Room Air 05/01/25 12:28 BMI result Body Mass Index 23.8 Const General: no acute distress Eyes General: appearance normal, both eyes and all related structures Neck Neck: Yes no lymphadenopathy and Yes supple Resp Effort & Inspection: normal respiratory effort Auscultation: clear to auscultation bilaterally Cardio Rhythm: regular rhythm Heart sounds: S1 normal heart sound present and S2 normal heart sound present GI Inspection: Yes normal to inspection Palpation (GI): Soft to palpation Percussion: Yes normal to percussion Auscultation: normal bowel sounds Extrem General: Yes no clubbing, cyanosis or edema Assessment & Plan Assessment & Plan (1) Distal radial fracture: Comment: left nondisplaced 04/14/2025 given a wrist brace at Walk in Code(s): S52.509A - Unspecified fracture of the lower end of unspecified radius, initial encounter for closed fracture Plan: Refer to hand surgeon (2) Postmenopausal: Code(s): Z78.0 - Asymptomatic menopausal state Plan: Check DEXA (3) Anxiety disorder: Comment: Stable on Lexapro Code(s): F41.9 - Anxiety disorder, unspecified Plan: Continue Lexapro (4) Essential hypertension: Code(s): I10 - Essential (primary) hypertension Plan: Continue lisinopril (5) Dyslipidemia: Code(s): E78.5 - Hyperlipidemia, unspecified Plan: Continue statin Orders: Orders XR DEXA axial skeleton Today Z78.0 - Asymptomatic menopausal state Comprehensive [place]. Panel Fast 6 Months D64.9 - Anemia, unspecified, I10 - Essential (primary) hypertension Complete Blood Count Auto Diff 6 Months D64.9 - Anemia, unspecified, I10 - Essential (primary) hypertension Vitamin D 25-OH Total 6 Months D64.9 - Anemia, unspecified, I10 - Essential (primary) hypertension Referrals Hand Surgery Referral S52.509A - Unspecified fracture of the lower end of unspecified radius, initial encounter for closed fracture Quality Reporting (2019) Depression/Bipolar (159/160/161/177) PHQ-9: Total score: 2 Coding Level of Care Code Medicare Subsequent (G0439) Diagnoses Distal radial fracture S52.509A Postmenopausal Z78.0 Anxiety disorder F41.9 Essential hypertension I10 Dyslipidemia E78.5 CPT Codes Advance Care Planning - Advance Care Planning discussion: On file, no changes ([id number]) Advance Care Planning - Time spent: 1-15 minutes, on File ([id number]) Advance Care Planning Advance Care Planning discussion: On file, no changes Forms completed: Health Care Proxy Time spent: 1-15 minutes, on File Did not discuss due to Cultural/Spiritual beliefs: Yes
== END 2025-05-01 15:26 | disposition home or self-care (01) ==
PROVIDERS: PCP Internal Medicine; Visit Provider Internal Medicine
DX: Z00.00 Encounter for general adult medical examination without abnormal findings (principal); S52.502A Unspecified fracture of the lower end of left radius, initial encounter for closed fracture; Z78.0 Asymptomatic menopausal state; F41.9 Anxiety disorder, unspecified; I10 Essential (primary) hypertension; E78.5 Hyperlipidemia, unspecified

== ENCOUNTER 2025-05-09 08:39 | Outpatient (REF) | payer MEDICARE, OTHER, SELFPAY ==
--- NOTE | ~2025-05-09 | XR_ITS ---
EXAMINATION: XR WRIST 3 OR MORE VIEWS LEFT HISTORY: M25.532 - Pain in left wrist COMPARISON: Comparison is made with the prior examination of the left hand dated 04/14/2025. FINDINGS: Three views of the left wrist are submitted. The bones are osteopenic. Again seen is a comminuted intra-articular fracture of the distal radius. There is callus formation and sclerosis, consistent with healing. The fracture line remains visible. Again seen is severe osteoarthritis of the 1st carpometacarpal joint. The soft tissues are unremarkable. XR/XR wrist LT min 3V IMPRESSION: Osteopenia. Healing comminuted intra-articular fracture of the distal radius. Electronically signed by: Howadr Giang MD 05/09/2025 11:51 AM [facility]
== END 2025-05-09 08:40 | disposition home or self-care (01) ==
LOC: HO.HOSX 08:39
DX: S52.502D Unspecified fracture of the lower end of left radius, subsequent encounter for closed fracture with routine healing (principal); X58.XXXD Exposure to other specified factors, subsequent encounter
CPT/HCPCS: 73110; 99202

== ENCOUNTER 2025-05-09 11:20 | Outpatient (AMB) | payer MEDICARE, OTHER, SELFPAY ==
[2025-05-09 11:22] VITALS: BMI 23.8
--- NOTE | 2025-05-09 11:22 | MHC.OFFVIS ---
Vital Signs 05/09/25 11:22 Height 5 ft 1 in Weight 126 lb BMI 23.8 Intake Visit Reasons: FC: Left distal radius fx, DOI: 04/09/2025 Intake Note: Crystal is an 89 year old right hand dominant female, new patient, who presents today with her daughter for a Fracture Care Visit status post Left Distal Radius Fracture, DOI: 04/09/25. Patient was originally seen at [facility] on04/14/25 where she was given a Velcro wrist brace to wear for 8 weeks. At the time, patient declined ortho referral as they thought it was optional. Patient was then seen by PCP on 05/01/25, who referred patient. Today, patient reports she get occasional ache on lateral aspect of her left wrist. She is not taking any pain medication at this time. She continues wearing her Velcro wrist brace. Accompanied by: Daughter Allergies omeprazole (Prilosec) Allergy (Unknown, Verified 05/09/25 11:22) hives HPI HPI FC: Left distal radius fx, DOI: 04/09/2025: Details: Crystal is an 89 year old right hand dominant female, new patient, who presents today with her daughter for a Fracture Care Visit status post Left Distal Radius Fracture, DOI: 04/09/25. Patient was originally seen at [facility] on04/14/25 where she was given a Velcro wrist brace to wear for 8 weeks. At the time, patient declined ortho referral as they thought it was optional. Patient was then seen by PCP on 05/01/25, who referred patient. Today, patient reports she get occasional ache on lateral aspect of her left wrist, but that other than that she experiences no pain in the left wrist. She is not taking any pain medication at this time. She continues wearing her Velcro wrist brace like a cast, only removing for bathing. Denies numbness or tingling in the left hand. No other acute complaints or concerns at this time. [facility] Medical History (Updated 05/09/25 @ 14:45 by IZZY Ramírez) Distal radial fracture Wrist pain, left Vertigo Vitamin D deficiency Heart murmur Hearing loss Anxiety disorder GERD (gastroesophageal reflux disease) Dyslipidemia Essential hypertension Arm pain Shoulder pain, right Hx of fall Surgical History No pertinent past surgical history Family History Father Pancreatic cancer Mother Hypertension Social History Household Members: Family Household Members Other:: lives with son, Housing: House Do you presently have visiting nurse or other home services: Yes (meals on wheels) Alcohol intake: current Alcohol intake frequency: a few times a month Patient Tobacco Use Status: Never used Tobacco e-Cigarette/Vaping Use: Never Used service: No Current occupational status: retired Cognitive needs: No Hearing needs: Yes Vision needs: Yes Review of Systems Const All systems reviewed & are unremarkable except as noted in HPI and below Physical Exam Vital Signs: BMI result Body Mass Index 23.8 Extrem Other: Patient is alert, oriented, and in no acute distress. Neuro: Normal sensation of the tips of all digits of the left hand at this time Vascular: Cap refill brisk Pain: No tenderness to palpation about left distal radius No tenderness to palpation of the distal ulna, anatomical snuffbox, or elsewhere in the left hand or wrist Patient does report some discomfort in the dorsal aspect of the left wrist with flexion No pain with range of motion of the digits of the left hand ROM: Patient is able to make a closed fist and extend all digits of the left hand fully Patient is able to flex the wrist to approximately 50 degrees and extend to approximately 30 degrees, reports discomfort at both extremes of range of motion Skin: No lacerations or abrasions. General: No ecchymosis, erythema, or evidence of infection. Psych: Appears grossly normal Affect normal Attitude cooperative Office Procedures AMB Fracture Care Fracture Billing Code: Fracture Billing Code Results Reviewed Results Reviewed: X-rays obtained in the office today and independently reviewed by me, Bucky Golden PA-C, demonstrate nondisplaced fracture of the left distal radius with evidence of interval bony healing Assessment & Plan Assessment & Plan (1) Fracture of left distal radius: Code(s): S52.502A - Unspecified fracture of the lower end of left radius, initial encounter for closed fracture Category: Medical Plan 1. Left distal radius fracture Date of injury 04/09/2025 Patient is educated about this condition Patient is educated about the typical recovery course At this time, given the fact that the fracture is very minimally displaced, and is 4-week-old, there is no acute surgical intervention indicated for this fracture There is also no permanent immobilization indicated at this time, and the patient is provided with a new Velcro wrist splint to be worn with daytime activities While at rest, patient may remove this Velcro wrist splint to work on range of motion of the left hand and wrist 2 lb weight limit in left hand reinforced Patient does have good range of motion of the left hand and wrist, therefore I do not feel that OT is necessary at this time Patient understands this and is amenable to this plan Follow-up in 4 weeks with repeat x-rays for reassessment, sooner with any acute concerns Orders: Orders XR wrist LT min 3V Today M25.532 - Pain in left wrist Coding Level of Care Code New Pt Level 3 (27622) Diagnoses Fracture of left distal radius S52.502A CPT Codes Fracture Care - Fracture Billing Code: Fracture Billing Code ([id number])
== END 2025-05-09 11:51 | disposition home or self-care (01) ==
LOC: HO.HOS 11:21
PROVIDERS: PCP Internal Medicine
DX: S52.502A Unspecified fracture of the lower end of left radius, initial encounter for closed fracture (principal)
CPT/HCPCS: 99203

== ENCOUNTER → 2025-05-09 11:23 | Outpatient (BNV) | payer MEDICARE, OTHER, SELFPAY | PROVIDERS: Visit Provider Radiology Diagnostic Radiology | DX: S52.572D Other intraarticular fracture of lower end of left radius, subsequent encounter for closed fracture with routine healing (principal); M85.842 Other specified disorders of bone density and structure, left hand | CPT/HCPCS: 73110 ==

== ENCOUNTER 2025-06-09 08:28 | Outpatient (REF) | payer MEDICARE, OTHER, SELFPAY ==
--- NOTE | ~2025-06-09 | XR_ITS ---
EXAMINATION: XR WRIST 3 OR MORE VIEWS LEFT HISTORY: M25.532 - Pain in left wrist COMPARISON: Comparison is made with the prior examination dated 05/09/2025. FINDINGS: Three views of the left wrist are submitted. The bones are osteopenic. Again seen is a fracture of the distal radius. There is greater sclerosis at the fracture margins consistent with healing. There is severe osteoarthritis of the 1st carpometacarpal joint. The soft tissues are unremarkable. XR/XR wrist LT min 3V IMPRESSION: Healing fracture of the distal radial metaphysis. Electronically signed by: Howard Giang MD 06/09/2025 11:43 AM [facility]
== END 2025-06-09 08:29 | disposition home or self-care (01) ==
LOC: HO.HOSX 08:28
DX: S52.502D Unspecified fracture of the lower end of left radius, subsequent encounter for closed fracture with routine healing (principal); X58.XXXD Exposure to other specified factors, subsequent encounter
CPT/HCPCS: 73110

== ENCOUNTER 2025-06-09 09:46 | Outpatient (AMB) | payer MEDICARE, OTHER, SELFPAY ==
[2025-06-09 09:59] VITALS: BMI 23.8
--- NOTE | 2025-06-09 09:59 | MHC.OFFVIS ---
Vital Signs 06/09/25 09:59 Height 5 ft 1 in Weight 126 lb BMI 23.8 Intake Visit Reasons: OV-Left distal radius fx,DOI: 04/09/25 w/ xray Intake Note: Crystal is an 89 year old right hand dominant female who presents today for a Follow Up Visit status post Left Distal Radius Fracture, DOI: 04/09/25. At her last visit, she was placed in a new Velcro wrist brace to be worn with daytime activities as her fracture was very minimally displaced. A 2 lb weight limit was reinforced. No referral to occupational therapy required. Today patient reports she continues using her brace. She complains of occasional discomfort. Allergies omeprazole (Prilosec) Allergy (Unknown, Verified 05/09/25 11:22) hives HPI HPI OV-Left distal radius fx,DOI: 04/09/25 w/ xray: Details: Crystal is an 89 year old right hand dominant female who presents today for a Follow Up Visit status post Left Distal Radius Fracture, DOI: 04/09/25. At her last visit, she was placed in a new Velcro wrist brace to be worn with daytime activities as her fracture was very minimally displaced. A 2 lb weight limit was reinforced. No referral to occupational therapy required. Today patient reports she continues using her brace. She complains of occasional discomfort, but overall has improved significantly from previous evaluation and feels she is recovering very well. [facility] Medical History (Updated 05/09/25 @ 14:45 by IZZY Ramírez) Distal radial fracture Wrist pain, left Vertigo Vitamin D deficiency Heart murmur Hearing loss Anxiety disorder GERD (gastroesophageal reflux disease) Dyslipidemia Essential hypertension Arm pain Shoulder pain, right Hx of fall Surgical History No pertinent past surgical history Family History Father Pancreatic cancer Mother Hypertension Social History Household Members: Family Household Members Other:: lives with son, Housing: House Do you presently have visiting nurse or other home services: Yes (meals on wheels) Alcohol intake: current Alcohol intake frequency: a few times a month Patient Tobacco Use Status: Never used Tobacco e-Cigarette/Vaping Use: Never Used service: No Current occupational status: retired Cognitive needs: No Hearing needs: Yes Vision needs: Yes Review of Systems Const All systems reviewed & are unremarkable except as noted in HPI and below Physical Exam Vital Signs: BMI result Body Mass Index 23.8 Extrem Other: Patient is alert, oriented, and in no acute distress. Neuro: Normal sensation of the tips of all digits of the left hand at this time Vascular: Cap refill brisk Pain: No tenderness to palpation about left distal radius No tenderness to palpation of the distal ulna, anatomical snuffbox, or elsewhere in the left hand or wrist Patient does report some discomfort in the dorsal aspect of the left wrist with flexion No pain with range of motion of the digits of the left hand ROM: Patient is able to make a closed fist and extend all digits of the left hand fully Patient is able to flex the wrist to approximately 60 degrees and extend to approximately 40 degrees, reports discomfort at both extremes of range of motion of wrist extension Skin: No lacerations or abrasions. General: No ecchymosis, erythema, or evidence of infection. Psych: Appears grossly normal Affect normal Attitude cooperative Results Reviewed Results Reviewed: X-rays obtained in the office today and independently reviewed by me, Bucky Golden PA-C, demonstrate nondisplaced fracture of the left distal radius with evidence of interval bony healing Assessment & Plan Assessment & Plan (1) Fracture of left distal radius: Code(s): S52.502A - Unspecified fracture of the lower end of left radius, initial encounter for closed fracture Category: Medical Plan 1. Left distal radius fracture Date of injury 04/09/2025 Patient is educated about this condition Patient is educated about the typical recovery course At this time, given the fact that the fracture is very minimally displaced, and is 4-week-old, there is no acute surgical intervention indicated for this fracture Velcro wrist splint to be worn with high-risk daytime activities, we will remove to work on range of motion 2 lb weight limit in left hand reinforced Range of motion is very good at this time, again I do not feel this patient requires any occupational therapy Patient understands this and is amenable to this plan Follow-up prior to departure for [place], as the patient is leaving for approximately 1.5 months, with any acute concerns Orders: Orders XR wrist LT min 3V Today M25.532 - Pain in left wrist Coding Level of Care Code Global (06209) Diagnoses Fracture of left distal radius S52.502A
== END 2025-06-09 10:13 | disposition home or self-care (01) ==
LOC: HO.HOS 09:47
PROVIDERS: PCP Internal Medicine
DX: S52.502A Unspecified fracture of the lower end of left radius, initial encounter for closed fracture (principal)
CPT/HCPCS: 99213

== ENCOUNTER → 2025-06-09 09:48 | Outpatient (BNV) | payer MEDICARE, OTHER, SELFPAY | PROVIDERS: Visit Provider Radiology Diagnostic Radiology | DX: M25.532 Pain in left wrist (principal) | CPT/HCPCS: 73110 ==